=== PATIENT | male | born 1980 | race African-American/Black ===

== ENCOUNTER 2019-09-30 10:20 | Inpatient (IN) | payer OTHER ==
[2019-09-30 10:26] VITALS: TEMP 97.7
[2019-09-30] MEDS ORDERED: SODIUM CHLORIDE 0.9% 1,000 ML IV STA (10:46)
[2019-09-30] MEDS ORDERED: HEPARIN SODIUM,PORCINE 5,000 UNIT/ML 1 ML VIAL IV STA (10:46)
[2019-09-30] MEDS ORDERED: ASPIRIN 81 MG PO STA (10:46)
--- NOTE | 2019-09-30 10:52 | ED ---
General Adult HPI - General Chief complaint: Chest Pain Stated complaint: Chest pain Time Seen by Provider: 09/30/19 10:46 Source: patient Mode of arrival: wheelchair Limitations: no limitations - History of Present Illness Initial comments: Dictation was produced using Edúkame dictation software. please excuse any grammatical, word or spelling errors. Chief Complaint: 38-year-old male presents with chest pain. History of Present Illness: This 38-year-old male who presents today with chief complaint of chest pain. Patient states his pain started yesterday. States that it was a tightness to his anterior chest. He states last several hours. Reports that he was diaphoretic during that time. He does report that there was some feeling that went down his left upper extremity. Patient has been in sharp. There is no radiation to the back. Patient has any history of coronary artery disease. Does report that his mother had cardiac problems but he does not know of any history of heart attacks in the family. Patient states his pain is mild at this time. Denies the pain worsening with lying flat or taking deep breath. The ROS documented in this emergency department record has been reviewed and confirmed by me. Those systems with pertinent positive or negative responses have been documented in the HPI. All other systems are other negative and/or noncontributory. PHYSICAL EXAM: General Impression: Alert and oriented x3, not in acute distress HEENT: Normocephalic atraumatic, extra-ocular movements intact, pupils equal and reactive to light bilaterally, mucous membranes moist. Cardiovascular: Heart regular rate and rhythm, S1&S2 audible, no murmurs, rubs or gallops Chest: Lungs clear to auscultation bilaterally, no rhonchi, no wheeze, no rales Abdomen: Bowel sounds present, abdomen soft, non-tender, non-distended, no organomegaly Musculoskeletal: Pulses present and equal in all extremities, no peripheral edema Motor: no focal deficits noted Neurological: CN II-XII grossly intact, no focal motor or sensory deficits noted Skin: Intact with no visualized rashes Psych: Normal affect and mood ED course: 38-year-old male presents with chief complaint of chest pain. Signs upon arrival are within acceptable limits. EKG concerning for ST segment elevation AL with ST segment elevation in precordial leads. Code STEMI was paged. Patient is given aspirin and heparin bolus. 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 EKG interpretation: Ventricular rate 72, normal sinus rhythm,. Interval 160, QS 102, QTC 394. No old EKG for comparison. Concerning for ST segment elevation AL - Related Data Home Medications Medication Instructions Recorded Confirmed oxyCODONE HCL [oxyCODONE HCL (IR)] 10 mg PO Q6HR PRN 05/05/16 05/05/16 Previous Rx's Medication Instructions Recorded Cetirizine HCl [Zyrtec] 10 mg PO DAILY #10 tab 05/05/16 EPINEPHrine (Auto Inject) [Epipen] 0.3 mg IM ONCE PRN #1 syringe 05/05/16 Famotidine [Pepcid] 20 mg PO BID #10 tablet 05/05/16 predniSONE 50 mg PO DAILY #3 tab 05/05/16 Allergies Allergy/AdvReac Type Severity Reaction Status Date / Time pollen extracts Allergy Rash/Hives Verified 05/05/16 19:45 Review of Systems ROS Statement: Those systems with pertinent positive or pertinent negative responses have been documented in the HPI. ROS Other: All systems not noted in ROS Statement are negative. Past Medical History Additional Past Medical History / Comment(s): lower back pain History of Any Multi-Drug Resistant Organisms: None Reported Past Surgical History: Appendectomy, Back Surgery Past Psychological History: No Psychological Hx Reported Smoking Status: Current every day smoker Past Alcohol Use History: None Reported Past Drug Use History: None Reported General Exam Limitations: no limitations Course Vital Signs 09/30/19 10:21 Temperature 97.7 F Pulse Rate 93 Respiratory 18 Rate O2 Sat by Pulse 99 Oximetry Disposition Clinical Impression: STEMI (ST elevation myocardial infarction) Disposition: ADMITTED IP TO THIS HOSP Condition: Critical Referrals: Denise Rodriguez DO [Primary Care Provider] - 1-2 days Decision Time: 11:01
[2019-09-30] MEDS ORDERED: NALOXONE 0.4 MG/ML 1 ML VIAL IV PRN (10:58)
[2019-09-30] MEDS ORDERED: HEPARIN SOD,PORK IN 0.45% NACL 25,000 UNIT in 0.45% NACL 1 250ML.BAG IV SCH (11:00)
--- NOTE | 2019-09-30 11:05 | XR ---
EXAMINATION TYPE: XR chest 1V portable DATE OF EXAM: 09/30/2019 COMPARISON: None INDICATION: Chest pain left arm numbness TECHNIQUE: Single frontal view of the chest is obtained. FINDINGS: The heart size is normal. The pulmonary vasculature is normal. The lungs are clear. IMPRESSION: 1. No acute pulmonary process.
--- NOTE | 2019-09-30 11:11 | P.HPIM ---
History of Present Illness This is a pleasant 38 years old -[place] African male with no significant past medical history, who presents with chest pain of 2 days' duration, central and radiated into the left arm felt severe about 10/10 in severity with a grabbing sensation on presentation associated with some dyspnea and lightheadedness but no sweating or vomiting. Patient works at [employer], he follows up with Dr. derek kang as his PCP patient every day smoker, he smokes about a third pack per day Presentation vitals stable. Labs are still pending. Chest x-ray: No acute process by Radiologist. EKG showing normal sinus rhythm at [address] elevation in V3 to V6, also at lead 1 and 2. Patient already got one-time dose of aspirin and he was started on heparin drip Review of Systems Review of systems CONSTITUTIONAL: No fever, no malaise, no fatigue. HEENT: No recent visual problems or hearing problems. Denied any sore throat. CARDIOVASCULAR: No orthopnea, PND, no palpitations, no syncope. PULMONARY: no cough, no hemoptysis. GASTROINTESTINAL: No diarrhea, no nausea, no vomiting, no abdominal pain. Normoactive bowel sounds. NEUROLOGICAL: No headaches, no weakness, no numbness. HEMATOLOGICAL: Denies any bleeding or petechiae. GENITOURINARY: Denies any burning micturition, frequency, or urgency. MUSCULOSKELETAL/RHEUMATOLOGICAL: Denies any joint pain, swelling, or any muscle pain. ENDOCRINE: Denies any polyuria or polydipsia. Past Medical History Additional Past Medical History / Comment(s): lower back pain History of Any Multi-Drug Resistant Organisms: None Reported Past Surgical History: Appendectomy, Back Surgery Past Psychological History: No Psychological Hx Reported Smoking Status: Current every day smoker Past Alcohol Use History: None Reported Past Drug Use History: None Reported Medications and Allergies Home Medications Medication Instructions Recorded Confirmed Type Cetirizine HCl [Zyrtec] 10 mg PO DAILY #10 tab 05/05/16 Rx EPINEPHrine (Auto Inject) [Epipen] 0.3 mg IM ONCE PRN #1 syringe 05/05/16 Rx Famotidine [Pepcid] 20 mg PO BID #10 tablet 05/05/16 Rx oxyCODONE HCL [oxyCODONE HCL (IR)] 10 mg PO Q6HR PRN 05/05/16 05/05/16 History predniSONE 50 mg PO DAILY #3 tab 05/05/16 Rx Allergies Allergy/AdvReac Type Severity Reaction Status Date / Time pollen extracts Allergy Rash/Hives Verified 05/05/16 19:45 Physical Exam Vitals: Vital Signs Temp Pulse Resp Pulse Ox 09/30/19 10:21 97.7 F 93 18 99 Intake and Output 09/29/19 09/30/19 09/30/19 22:59 06:59 14:59 Other: Weight 74.752 kg GENERAL: The patient is alert and oriented x3, not in any acute distress. Well developed, well nourished. HEENT: Pupils are round and equally reacting to light. EOMI. No scleral icterus. No conjunctival pallor. Normocephalic, atraumatic. No pharyngeal erythema. No thyromegaly. CARDIOVASCULAR: S1 and S2 present. No murmurs, rubs, or gallops. PULMONARY: Chest is clear to auscultation, no wheezing or crackles. ABDOMEN: Soft, nontender, nondistended, normoactive bowel sounds. No palpable organomegaly. MUSCULOSKELETAL: No joint swelling or deformity. EXTREMITIES: No cyanosis, clubbing, or pedal edema. NEUROLOGICAL: Gross neurological examination did not reveal any focal deficits. SKIN: No rashes. no petechiae. Assessment and Plan Assessment: ST elevation myocardial infarction, going for emergent catheterization of the heart Nicotine dependence Plan: This is a pleasant 78 years old male who presents with a STEMI. Patient is going for emergent cath by cardiology team. Follow-up recommendation by cardiology service team. Continue with antiplatelet therapy like aspirin. Pain management Labs and medication were reviewed.. Continue same treatment. Continue with symptomatic treatment. Resume home medication. Monitor lytes and vitals. DVT and GI prophylaxis. Further recommendations of the clinical course of the patient DVT prophylaxis: Subcutaneous heparin GI Prophylaxis: Pepcid Prognosis is guardedThis is a pleasant 78 years old male who presents with a STEMI. Patient is going for emergent cath by cardiology team. Follow-up recommendation by cardiology service team. Continue with antiplatelet therapy like aspirin. Pain management Labs and medication were reviewed.. Continue same treatment. Continue with symptomatic treatment. Resume home medication. Monitor lytes and vitals. DVT and GI prophylaxis. Further recommendations of the clinical course of the p atient DVT prophylaxis: Subcutaneous heparin GI Prophylaxis: Pepcid Prognosis is guarded
[2019-09-30 11:18] LABS: Basophils # (A) 0.2 k/uL (0-0.2); Basophils % (A) 3 %; Eosinophils # (A) 0.3 k/uL (0-0.7); Eosinophils % (A) 4 %; HCT 43.8 % (39.0-53.0); HGB 15.4 gm/dL (13.0-17.5); Lymphocytes # (A) 1.7 k/uL (1.0-4.8); Lymphocytes % (A) 25 %; MCH 31.2 pg (25.0-35.0); MCHC 35.3 g/dL (31.0-37.0); MCV 88.3 fL (80.0-100.0); Mean Platelet Volume 7.5; Monocytes # (A) 0.3 k/uL (0-1.0); Monocytes % (A) 5 %; Neutrophils # (A) 4.3 k/uL (1.3-7.7); Neutrophils % (A) 62 %; Platelet Count 313 k/uL (150-450); RBC 4.96 m/uL (4.30-5.90); RDW 12.2 % (11.5-15.5); WBC 6.9 k/uL (3.8-10.6)
[2019-09-30] MEDS ORDERED: MIDAZOLAM 2 MG/2 ML VIAL IVP ONE (11:20)
[2019-09-30] MEDS ORDERED: LIDOCAINE 1% INJ 10MG/ML (20 ML MDV) SQ ONE (11:25)
[2019-09-30] MEDS ORDERED: VERAPAMIL SYRINGE (5 MG/10 ML) INTRAARTER ONE (11:26)
[2019-09-30] MEDS ORDERED: IV FLUID CONTINUATION 1,000 ML IV ONE (11:30)
[2019-09-30 11:34] LABS: Partial Thromboplastin Time 23.3 sec (22.0-30.0); Prothrombin Time 10.2 sec (9.0-12.0)
[2019-09-30 11:44] LABS: ALT 49 U/L (4-49); AST 44 U/L (17-59); African American GFR (CKD) >90 (>60 ml/min/1.73 sqM); Albumin 4.6 g/dL (3.5-5.0); Alkaline Phosphatase 72 U/L (38-126); Anion Gap 10 mmol/L; Blood Urea Nitrogen 20 mg/dL (9-20); Calcium 9.9 mg/dL (8.4-10.2); Carbon Dioxide 25 mmol/L (22-30); Chloride 106 mmol/L (98-107); Glucose 98 mg/dL (74-99); Non-African American GFR(CKD) >90 (>60 ml/min/1.73 sqM); Potassium 4.7 mmol/L (3.5-5.1); Sodium 141 mmol/L (137-145); Total Protein 7.7 g/dL (6.3-8.2)
[2019-09-30] MEDS ORDERED: RX INFO: IV CONTRAST WAS GIVEN 1 EACH MISC MISCELLANE PRN (11:52)
[2019-09-30] MEDS ORDERED: IOPAMIDOL-370 100ML BTL INJ ONE (11:54)
[2019-09-30] MEDS ORDERED: SODIUM CHLORIDE 0.9% 1,000 ML IV SCH (12:00)
[2019-09-30 12:17] VITALS: RESP 16
--- NOTE | 2019-09-30 12:28 | CC ---
CARDIAC CATHETERIZATION REPORT DATE OF SERVICE: 09/30/2019 PROCEDURE: Left heart catheterization and coronary angiography. PERFORMED BY: Dr. Nona Zapata. Moderate conscious sedation time was 21 minutes. Patient was administered Versed. Oxygen saturation, hemodynamics and EKG were monitored closely. CLINICAL INFORMATION: Mr. Jojo Allison is a 38-year-old gentleman who is relatively new to the area. He came into the emergency room with chest pain suggestive of angina, had a precordial ST prominence raising the possibility of ST-elevation [place]. The emergency room physician saw the patient and called a STEMI alert. I saw the patient in the laborer electroplating. He was relatively pain free. EKG revealed [address]-depression in lead V2 and clinical picture was not strongly suggestive of myocardial ischemia, but given his presentation and unclear situation, I recommended coronary angiography that was performed expeditiously. PROCEDURE NOTE: Under local anesthesia and strict aseptic precautions, a 6-Welsh introducer was placed in the right radial artery. There was some spasm. I used a Glidewire. Using a JL3.5 and JR4.0 catheters I performed coronary angiography and checked LV pressures with the right Santino catheter. Following that, I took the sheath out and applied a TR band with good hemostasis. Saturation of the fingers of the right hand was 100%. Patient tolerated procedure well without complications. CARDIAC CATHETERIZATION FINDINGS: The left ventricular end-diastolic pressure was 10 mmHg without any gradient across the aortic valve. CORONARY ANGIOGRAPHY FINDINGS: RIGHT CORONARY ARTERY: Technically a codominant vessel has no significant disease, tortuous, distally gives off a single branch. No significant disease, has minor irregularities. LEFT MAIN CORONARY ARTERY: Short patent disease-free vessel that bifurcates into LAD and circumflex. No significant disease in the left main. LEFT ANTERIOR DESCENDING CORONARY ARTERY: This is a good caliber vessel extends along the anterior wall. The LAD is somewhat tortuous, but no significant disease. It gives off a large diagonal branch and runs all the way to the apex, curves over the apex to supply the inferoapical portion. It gives off several septal branches. No significant disease in the LAD. Diagonal is also free of significant disease. LEFT POSTERIOR CIRCUMFLEX CORONARY ARTERY: A codominant vessel gives off a good-sized obtuse marginal branch that runs in the PLV distribution and also has an AV groove branch that runs all the way distally and gives off a posterolateral branch. The first obtuse marginal that comes off seems to run in the PDA distribution and the continuation of the circumflex then continues as a posterolateral branch. No significant disease in the codominant circumflex system. LEFT VENTRICULOGRAM: Left ventriculogram was not performed. Moderate conscious sedation time was 21 minutes. FINAL IMPRESSION: This patient has a codominant system. Normal filling pressures. No gradient across aortic valve. No significant obstructive coronary artery disease. RECOMMENDATIONS: Findings were discussed with the patient and his boyfriend partner. I explained that there is no CAD. I will obtain a D-dimer level, echocardiogram and watch him closely for 24 hours. The patient does not have obstructive CAD and his labs and initial troponin is unremarkable. MMODL / IJN: [id number] /
--- NOTE | 2019-09-30 12:40 | CONS ---
CONSULTATION Mr. Jojo Allison is a 38-year-old gentleman who presented to the emergency room with chest pain, was seen by the ER doctor and a STEMI alert was called. He had ST elevation in lead V2. His main complaint was chest pressure that is going on for several hours. It actually started yesterday. The pain is persistent and he also had an episode of diaphoresis. Quality of the pain does raise the possibility of angina. However, this pain seems to be sharp in nature. Sometimes worse sometimes with deep breathing. He was asymptomatic when I saw him in the emergency room. PAST MEDICAL HISTORY: Remarkable for a low back pain with disc issues. He takes pain medications and also has some depression and takes BuSpar. ALLERGIES: None. REVIEW OF SYSTEMS: Unremarkable other than above-mentioned facts. PHYSICAL EXAMINATION: Blood pressure is 130/70, pulse rate is about 80 per minute. HEENT: Unremarkable. Fundus was not examined by me. NECK: Supple. No JVD. I do not hear a carotid bruit. There is no thyromegaly. HEART: Exam reveals S1, S2 heard normally. No rub, murmur or gallop. LUNGS: Are clear. ABDOMEN: Is soft, nontender. LOWER EXTREMITIES: Reveal normal pulses. No edema. CENTRAL NERVOUS SYSTEM: Normal. EKG reveals sinus mechanism, is slightly prominent ST J-point in lead V1 and V2. EKG is equivocal for ST elevation [place], but a STEMI alert was called. IMPRESSION: 1. Chest pain with equivocal ST elevation, no clear-cut evidence of ST-elevation myocardial infarction. 2. History of low back pain. 3. Status post appendectomy. RECOMMENDATION: I recommended coronary angiography and based on findings intervention. The rationale, risks, benefits, options were explained to the patient. He understood all details and wished to proceed with the procedure. MMODL / IJN: [id number] /
[2019-09-30] MEDS ORDERED: ACETAMINOPHEN TAB 325 MG TAB PO PRN (15:49)
[2019-09-30 20:12] VITALS: BP 131/73; PULSE 83
[2019-09-30] MEDS ORDERED: METOPROLOL TARTRATE 12.5 MG TAB PO SCH (21:00)
[2019-09-30] MEDS ORDERED: HEPARIN SODIUM,PORCINE 5,000 UNIT/ML 1 ML VIAL SQ SCH (21:00)
--- NOTE | 2019-10-01 13:00 | ECHOF ---
Referral Reason:chest pain. MEASUREMENTS -------- HEIGHT: 175.3 cm WEIGHT: 74.4 kg BP: IVSd: 1.6 cm (0.6 - 1.1) LVIDd: 4.0 cm (3.9 - 5.3) LVPWd: 1.7 cm (0.6 - 1.1) IVSs: 2.2 cm LVIDs: 2.3 cm LVPWs: 2.0 cm LAESV Index (A-L): 19.20 ml/m Ao Diam: 3.2 cm (2.0 - 3.7) AV Cusp: 2.3 cm (1.5 - 2.6) LA Diam: 2.0 cm (2.7 - 3.8) MV EXCURSION: 26.725 mm (> 18.000) MV EF SLOPE: 150 mm/s (70 - 150) EPSS: 0.8 cm MV E Domingo: 0.50 m/s MV DecT: 223 ms MV A Domingo: 0.41 m/s MV E/A Ratio: 1.21 RAP: 5.00 mmHg RVSP: 10.25 mmHg FINDINGS -------- Sinus rhythm. This was a technically good study. The left ventricular size is normal. There is severe concentric left ventricular hypertrophy. Ove rall left ventricular systolic function is low-normal with, an EF between 50 - 55 %. The diastolic filling pattern is normal for the age of the patient 6.09. The right ventricle is normal in size. The left atrial size is normal. Normal LA size by volume 22+/-6 ml/m2. The right atrial size is normal. The aortic valve is trileaflet and appears structurally normal. The mitral valve is normal. The mitral valve leaflets are mildly thickened. There is trace mitral regurgitation. The tricuspid valve appears structurally normal. Trace tricuspid regurgitation present. Right placido tricular systolic pressure is normal at < 35 mmHg. There is no pulmonic regurgitation present. The aortic root size is normal. Normal inferior vena cava with normal inspiratory collapse consistent with estimated right atrial pre ssure of 5 mmHg. There is no pericardial effusion. CONCLUSIONS -------- 1. Sinus rhythm. 2. This was a technically good study. 3. The left ventricular size is normal. 4. There is severe concentric left ventricular hypertrophy. 5. Overall left ventricular systolic function is low-normal with, an EF between 50 - 55 %. 6. The diastolic filling pattern is normal for the age of the patient 6.09 7. The right ventricle is normal in size. 8. The left atrial size is normal. 9. Normal LA size by volume 22+/-6 ml/m2. 10. The right atrial size is normal. 11. The aortic valve is trileaflet and appears structurally normal. 12. The mitral valve is normal. 13. The mitral valve leaflets are mildly thickened. 14. There is trace mitral regurgitation. 15. The tricuspid valve appears structurally normal. 16. Trace tricuspid regurgitation present. 17. Right ventricular systolic pressure is normal at < 35 mmHg. 18. There is no pulmonic regurgitation present. 19. The aortic root size is normal. 20. Normal inferior vena cava with normal inspiratory collapse consistent with estimated right atrial pressure of 5 mmHg. 21. There is no pericardial effusion. HAND INSPECTOR: Lesley Mcmahan RDCS
--- NOTE | 2019-10-08 12:30 | CDI ---
Documentation Clarification Form Date: 10/08/19 From: Fabiana Pelaez Phone: If you have a question about this query, please contact Sharla Almazan, Diesel Stationary Engineer at [phone] between 8am and 5pm. Admit Date: 09/30/19 Discharge Date:09/30/19 Patient Name: Jojo Allison Visit Number: [id number] ATTENTION: The Clinical Documentation Specialists (CDI) and [facility] Coding Staff appreciate your assistance in clarifying documentation. Please respond to the clarification below the line at the bottom and electronically sign. The CDI & [facility] Coding staff will review the response and follow-up if needed. Please note: Queries are made part of the Legal Health Record. If you have any questions, please contact the author of this message via ITS. Dear Dr. Celis ST elevation myocardial infarction is documented in the H&P and ED note. Patient History/Risk Factors: Smokes cigarettes Clinical Indicators: Chest pain Troponin: < 0.012 EKG Results: Significant ST elevation in V3 to V6 also at lead 1 and 2 Treatment: Coronary angiography which revealed no CAD Consult: Dr. Zapata documented chest pain with equivocal ST elevation, no clear- cut evidence of ST elevation myocardial infarction. In order to capture the severity of condition and necessary documentation specificity, please clarify: STEMI Ruled Out STEMI NSTEMI Unable to determine Other Condition, please specify STEMI Ruled Out MTDD
== END 2019-09-30 18:17 | disposition home or self-care (01) | DRG 287 ==
LOC: EC 10:20 → 2SICU 10:58 → 3SCARD 11:47
PROVIDERS: ADMIT Internal Medicine; ATTEND Internal Medicine
PROC: B2111ZZ Fluoroscopy of Multiple Coronary Arteries using Low Osmolar Contrast (ICD-10-PCS; principal; 2019-09-30 09:00)
PROC: 4A023N7 Measurement of Cardiac Sampling and Pressure, Left Heart, Percutaneous Approach (ICD-10-PCS; principal; 2019-09-30 09:00)
DX: R07.9 Chest pain, unspecified (principal); F17.210 Nicotine dependence, cigarettes, uncomplicated; M54.5 Low back pain; F32.9 Major depressive disorder, single episode, unspecified; Z90.49 Acquired absence of other specified parts of digestive tract; Z79.52 Long term (current) use of systemic steroids; Z79.899 Other long term (current) drug therapy; Z91.048 Other nonmedicinal substance allergy status
CPT/HCPCS: 71045; 80053; 84484; 85025; 85379; 85610; 85730; 93306; 93458; 96374; 99285

== ENCOUNTER 2020-09-02 04:28 | Emergency (ER) | payer OTHER ==
[2020-09-02 04:35] VITALS: BP 130/78; PULSE 93; RESP 20; TEMP 98.6
[2020-09-02] MEDS ORDERED: cefTRIAXone 250 MG VIAL IM STA (04:41)
[2020-09-02] MEDS ORDERED: AZITHROMYCIN 500 MG TAB PO STA (04:41)
--- NOTE | 2020-09-02 04:41 | ED ---
Male Urogenital HPI - General Chief complaint: Urogenital Stated complaint: not feeling well Time Seen by Provider: 09/02/20 04:40 Source: patient, RN notes reviewed, old records reviewed Mode of arrival: ambulatory Limitations: no limitations - History of Present Illness Initial comments: This is a 39-year-old male to the ER for evaluation. Patient has burning discharge drainage from his urethra, penis. No rash noted does admit to new sexual contacts. No fevers no swelling he has have prior history of STD MD Complaint: dysuria -: days(s) Location: penis Radiation: none Severity: moderate Quality: burning, sharp Consistency: constant Improves with: none Worsens with: urination new sexual partner Reports: discharge, blood in urine - Related Data Home Medications Medication Instructions Recorded Confirmed oxyCODONE HCL [oxyCODONE HCL (IR)] 10 mg PO TID 05/05/16 09/30/19 busPIRone HCL 15 mg PO DAILY 09/30/19 09/30/19 busPIRone HCL 30 mg PO HS 09/30/19 09/30/19 Previous Rx's Medication Instructions Recorded EPINEPHrine (Auto Inject) [Epipen] 0.3 mg IM ONCE PRN #1 syringe 05/05/16 Allergies Allergy/AdvReac Type Severity Reaction Status Date / Time pollen extracts Allergy Rash/Hives Verified 09/02/20 04:35 Review of Systems ROS Statement: Those systems with pertinent positive or pertinent negative responses have been documented in the HPI. ROS Other: All systems not noted in ROS Statement are negative. Past Medical History Additional Past Medical History / Comment(s): lower back pain, RA History of Any Multi-Drug Resistant Organisms: None Reported Past Surgical History: Appendectomy, Back Surgery Past Psychological History: No Psychological Hx Reported Smoking Status: Current some day smoker Past Alcohol Use History: None Reported Past Drug Use History: None Reported General Exam - General Exam Comments Initial Comments: No rash noted no swelling no lymphadenopathy Limitations: no limitations General appearance: alert, in no apparent distress Head exam: Present: atraumatic, normocephalic, normal inspection Eye exam: Present: normal appearance, PERRL, EOMI. Absent: scleral icterus, conjunctival injection, periorbital swelling ENT exam: Present: normal exam, mucous membranes moist Neck exam: Present: normal inspection. Absent: tenderness, meningismus, lymphadenopathy Respiratory exam: Present: normal lung sounds bilaterally. Absent: respiratory distress, wheezes, rales, rhonchi, stridor Cardiovascular Exam: Present: regular rate, normal rhythm, normal heart sounds. Absent: systolic murmur, diastolic murmur, rubs, gallop, clicks GI/Abdominal exam: Present: soft, normal bowel sounds. Absent: distended, tenderness, guarding, rebound, rigid Extremities exam: Present: normal inspection, full ROM, normal capillary refill. Absent: tenderness, pedal edema, joint swelling, calf tenderness Back exam: Present: normal inspection Neurological exam: Present: alert, oriented X3, CN II-XII intact Psychiatric exam: Present: normal affect, normal mood Skin exam: Present: warm, dry, intact, normal color. Absent: rash Course Vital Signs 09/02/20 04:30 Temperature 98.6 F Pulse Rate 93 Respiratory 20 Rate Blood Pressure 130/78 O2 Sat by Pulse 100 Oximetry - Reevaluation(s) Reevaluation #1: 09/02/20 05:19 Medical record is reviewed Reevaluation #2: 09/02/20 05:20 Patient is informed of results Medical Decision Making - Medical Decision Making 39 male DF for evaluation. Patient will be discharged home and treated for STD - Lab Data Lab Results 09/02/20 Range/Units 04:45 Urine Color Yellow Urine Appearance Cloudy (Clear) Urine pH 6.5 (5.0-8.0) Ur Specific [place] 1.015 (1.001-1.035) Urine Protein Trace H (Negative) Urine Glucose (UA) Negative (Negative) Urine Ketones Negative (Negative) Urine Blood Moderate H (Negative) Urine Nitrite Negative (Negative) Urine Bilirubin Negative (Negative) Urine Urobilinogen <2.0 (<2.0) mg/dL Ur Leukocyte Esterase Large H (Negative) Urine RBC 13 H (0-5) /hpf Urine WBC 39 H (0-5) /hpf Urine Bacteria Occasional H (None) /hpf Urine Mucus Occasional H (None) /hpf Urine Yeast (Budding) Moderate H (None) /hpf Urine Sperm Few H (None) /hpf Disposition Clinical Impression: Urethritis, STD (male) Disposition: HOME SELF-CARE Condition: Good Instructions (If sedation given, give patient instructions): Urinary Tract Infection in Men (ED) Is patient prescribed a controlled substance at d/c from ED?: No Referrals: Ajith Preston MD [Primary Care Provider] - 1-2 days
[2020-09-02 04:56] LABS: Appearance,Urine Cloudy (Clear); Bacteria,Urine Occasional /hpf; Bilirubin,Urine Negative (Negative); Blood,Urine Moderate (Negative); Budding Yeast,Urine Moderate /hpf; Color,Urine Yellow; Glucose,Urine (UA) Negative (Negative); Ketones,Urine Negative (Negative); Leukocyte Esterase,Urine Large (Negative); Mucus,Urine Occasional /hpf; Nitrite,Urine Negative (Negative); PH, Urine 6.5 (5.0-8.0); Protein,Urine Trace (Negative); RBC,Urine 13 /hpf (0-5); Specific Gravity,Urine 1.015 (1.001-1.035); Sperm,Urine Few /hpf; Urobilinogen,Urine <2.0 mg/dL (<2.0); WBC,Urine 39 /hpf (0-5)
== END 2020-09-02 05:29 | disposition home or self-care (01) ==
LOC: EC 04:28
DX: A64 Unspecified sexually transmitted disease (principal); N34.2 Other urethritis; M54.5 Low back pain; F17.200 Nicotine dependence, unspecified, uncomplicated; Z79.891 Long term (current) use of opiate analgesic; Z79.899 Other long term (current) drug therapy; Z91.048 Other nonmedicinal substance allergy status
CPT/HCPCS: 81001; 87491; 87591; 87086; 99284; 96372; J0696

== ENCOUNTER 2021-05-02 23:40 | Emergency (ER) | payer OTHER ==
--- NOTE | 2021-05-03 02:40 | ED ---
General Adult HPI - General Chief complaint: Abdominal Pain Stated complaint: poss hernia Time Seen by Provider: 05/03/21 02:38 Source: patient Mode of arrival: ambulatory Limitations: no limitations - History of Present Illness Initial comments: 40 year-old male patient presents to the emergency department for evaluation of left groin swelling and discomfort. States it has been bothering him for about a week. He was concerned because he lifts weights and was not sure if it was a hernia. Patient denies any nausea, vomiting, fever, or chills. Denies any constipation or diarrhea. Denies history of hernia. Denies any back pain. Denies any hematuria, dysuria, urinary urgency, urinary frequency. Denies any scrotal swelling or pain. - Related Data Home Medications Medication Instructions Recorded Confirmed oxyCODONE HCL [oxyCODONE HCL (IR)] 10 mg PO TID 05/05/16 09/30/19 busPIRone HCL 15 mg PO DAILY 09/30/19 09/30/19 busPIRone HCL 30 mg PO HS 09/30/19 09/30/19 Previous Rx's Medication Instructions Recorded EPINEPHrine (Auto Inject) [Epipen] 0.3 mg IM ONCE PRN #1 syringe 05/05/16 Doxycycline Monohydrate [Monodox] 100 mg PO Q12HR #20 cap 09/02/20 Allergies Allergy/AdvReac Type Severity Reaction Status Date / Time pollen extracts Allergy Rash/Hives Verified 05/03/21 00:26 Review of Systems ROS Statement: Those systems with pertinent positive or pertinent negative responses have been documented in the HPI. ROS Other: All systems not noted in ROS Statement are negative. Past Medical History Past Medical History: Rheumatoid Arthritis (RA) Additional Past Medical History / Comment(s): lower back pain, RA, lupus History of Any Multi-Drug Resistant Organisms: None Reported Past Surgical History: Appendectomy, Back Surgery Past Psychological History: No Psychological Hx Reported Smoking Status: Current some day smoker Past Alcohol Use History: None Reported Past Drug Use History: None Reported General Exam Limitations: no limitations General appearance: alert, in no apparent distress, other Respiratory exam: Present: normal lung sounds bilaterally. Absent: respiratory distress, wheezes, rales, rhonchi, stridor Cardiovascular Exam: Present: regular rate, normal rhythm, normal heart sounds. Absent: systolic murmur, diastolic murmur, rubs, gallop, clicks GI/Abdominal exam: Present: soft, normal bowel sounds. Absent: distended, tenderness, guarding, rebound, rigid exam: Present: normal inspection, other (left inguinal lymph node swelling, tenderness) Neurological exam: Present: alert, oriented X3, CN II-XII intact Psychiatric exam: Present: normal affect, normal mood Skin exam: Present: warm, dry, intact, normal color. Absent: rash Course Vital Signs 05/03/21 00:23 Temperature 98.2 F Pulse Rate 69 Respiratory 20 Rate Blood Pressure 122/80 O2 Sat by Pulse 99 Oximetry Medical Decision Making - Medical Decision Making 40 year-old male patient presents to the emergency department for evaluation of left groin swelling and tenderness. Physical examination reveals left inguinal lymphadenopathy and tenderness. No swelling. No evidence for abscess or infectious process. He is afebrile. Normal vital signs. He will be discharged with instructions to apply warm compresses. Instructed to follow up with his primary care physician for recheck in 1 week if symptoms do not improve. Return parameters discussed in detail. He verbalizes understanding and agrees with this plan. My attending is Dr. Platt. Disposition Clinical Impression: Inguinal lymphadenopathy Disposition: HOME SELF-CARE Condition: Good Instructions (If sedation given, give patient instructions): Lymphadenopathy (ED) Additional Instructions: Apply warm compresses over the area twice daily. Follow up with primary care physician for recheck if symptoms do not improve over the next week. Return to the emergency department for any new, worsening, or concerning symptoms. Is patient prescribed a controlled substance at d/c from ED?: No Referrals: Nonstaff,Physician [Primary Care Provider] - 1-2 days Time of Disposition: 02:40
[2021-05-03 02:46] VITALS: BP 144/86; PULSE 94; RESP 18; TEMP 98.1
== END 2021-05-03 02:45 | disposition home or self-care (01) ==
LOC: EC 23:40
DX: R59.0 Localized enlarged lymph nodes (principal); F17.200 Nicotine dependence, unspecified, uncomplicated; Z90.49 Acquired absence of other specified parts of digestive tract
CPT/HCPCS: 99283

== ENCOUNTER 2021-05-24 05:49 | Emergency (ER) | payer OTHER ==
[2021-05-24 05:58] VITALS: BP 121/78; PULSE 78; RESP 18; TEMP 98.4
[2021-05-24] MEDS ORDERED: MORPHINE SULFATE 4 MG/ML SYRINGE IM STA (06:06)
--- NOTE | 2021-05-24 06:28 | ED ---
General Adult HPI - General Chief complaint: Urogenital Stated complaint: Male Time Seen by Provider: 05/24/21 06:22 Source: patient, RN notes reviewed Mode of arrival: ambulatory Limitations: no limitations - History of Present Illness Initial comments: 40-year-old male with a past medical history of RA, lupus presents to the emergency room for a chief complaint of retained foreign body around penis. Patient states about 6 hours ago he placed a ring around the penis and testicles. States that he cannot get it off. She states that it is now be coming painful and swollen.Patient has no other complaints at this time including shortness of breath, chest pain, abdominal pain, nausea or vomiting, headache, or visual changes. - Related Data Home Medications Medication Instructions Recorded Confirmed oxyCODONE HCL [oxyCODONE HCL (IR)] 10 mg PO TID 05/05/16 09/30/19 busPIRone HCL 15 mg PO DAILY 09/30/19 09/30/19 busPIRone HCL 30 mg PO HS 09/30/19 09/30/19 Previous Rx's Medication Instructions Recorded EPINEPHrine (Auto Inject) [Epipen] 0.3 mg IM ONCE PRN #1 syringe 05/05/16 Doxycycline Monohydrate [Monodox] 100 mg PO Q12HR #20 cap 09/02/20 Amoxic-Pot Clav 875-125Mg 1 tab PO Q12HR #20 tablet 05/03/21 [Augmentin 875-125] Allergies Allergy/AdvReac Type Severity Reaction Status Date / Time pollen extracts Allergy Rash/Hives Verified 05/24/21 05:58 Review of Systems ROS Statement: Those systems with pertinent positive or pertinent negative responses have been documented in the HPI. ROS Other: All systems not noted in ROS Statement are negative. Past Medical History Past Medical History: Rheumatoid Arthritis (RA) Additional Past Medical History / Comment(s): lower back pain, RA, lupus History of Any Multi-Drug Resistant Organisms: None Reported Past Surgical History: Appendectomy, Back Surgery Past Psychological History: No Psychological Hx Reported Smoking Status: Current some day smoker Past Alcohol Use History: None Reported Past Drug Use History: None Reported General Exam Limitations: no limitations General appearance: alert, in no apparent distress Head exam: Present: atraumatic Eye exam: Present: normal appearance, PERRL, EOMI. Absent: scleral icterus ENT exam: Present: normal exam, mucous membranes moist Neck exam: Present: normal inspection, full ROM. Absent: tenderness Respiratory exam: Present: normal lung sounds bilaterally. Absent: respiratory distress, wheezes Cardiovascular Exam: Present: regular rate, normal rhythm, normal heart sounds exam: Present: other (Patient has a 3 ringed metal structure around the base of the penile shaft as well as the scrotum. Mild penile edema noted. Skin is intact.) Course Vital Signs 05/24/21 05:52 Temperature 98.4 F Pulse Rate 78 Respiratory 18 Rate Blood Pressure 121/78 O2 Sat by Pulse 100 Oximetry Medical Decision Making - Medical Decision Making [place]ain cutters were used by Dr Platt and myself to cut the rings and it was easily removed. Patient's pain had resolved after removal. At this time patient can be discharged home to follow up with primary care. He'll return here for any worsening symptoms. Disposition Clinical Impression: Foreign body of penis Disposition: HOME SELF-CARE Condition: Good Instructions (If sedation given, give patient instructions): Priapism (ED) Additional Instructions: Please follow-up with your doctor in one to 2 days. Return to the emergency room for any worsening symptoms. Is patient prescribed a controlled substance at d/c from ED?: No Referrals: Nonstaff,Physician [Primary Care Provider] - 1-2 days Time of Disposition: 06:24
== END 2021-05-24 06:34 | disposition home or self-care (01) ==
LOC: EC 05:49
DX: T19.4XXA Foreign body in penis, initial encounter (principal); M06.9 Rheumatoid arthritis, unspecified; F17.200 Nicotine dependence, unspecified, uncomplicated
CPT/HCPCS: 99283; 96374; J2270

== ENCOUNTER → 2022-12-08 | Outpatient (CLI) | payer OTHER ==
--- NOTE | 2022-12-09 12:06 | XR ---
EXAMINATION TYPE: XR Hip Bilateral and AP pelvis DATE OF EXAM: 12/08/2022 COMPARISON: None HISTORY: Pain bilateral hips TECHNIQUE: Two-view bilateral hips supplemented with an AP pelvis. FINDINGS: Femoral heads articulate with the acetabulum. Mild joint space narrowing is present. Sacroi liac joints and symphysis pubis appear intact. There is a osseous spur from the lateral portion right pubic ramus. There is dystrophic calcification adjacent to the femoral neck of the left hip. No acute fractures are evident. IMPRESSION: 1. Chronic changes bilateral hips. No acute fractures evident. Follow up studies can be performed as clinically indicated.
== END | disposition home or self-care (01) ==
LOC: RADXRMAIN 14:45
PROVIDERS: ATTEND Family Medicine
DX: M06.4 Inflammatory polyarthropathy (principal); M25.551 Pain in right hip; M54.50 Low back pain, unspecified
CPT/HCPCS: 73521

== ENCOUNTER → 2023-01-12 | Outpatient (CLI) | payer OTHER ==
--- NOTE | 2023-01-13 23:32 | XR ---
EXAMINATION TYPE: XR lumbosacral spine min 4V DATE OF EXAM: 01/12/2023 Comparison: None Clinical History: 42-year-old male low back pain, M54.50 Findings: 5 lumbar type vertebral bodies. Facet arthropathy lower lumbar spine. No pars interarticularis defect seen. Vertebral body heights are preserved and alignment is maintained. Impression: Facet arthropathy lower lumbar spine. No vertebral compression collapse or malalignment.
== END | disposition home or self-care (01) ==
LOC: RADXRMAIN 11:23
PROVIDERS: ATTEND Family Medicine
DX: M47.816 Spondylosis without myelopathy or radiculopathy, lumbar region (principal); M06.4 Inflammatory polyarthropathy; M25.551 Pain in right hip
CPT/HCPCS: 72110

== ENCOUNTER 2023-03-28 15:55 | Emergency (ER) | payer OTHER ==
[2023-03-28 17:21] LABS: Appearance,Urine Clear (Clear); Bilirubin,Urine Negative (Negative); Blood,Urine Small (Negative); Color,Urine Light Yellow; Glucose,Urine (UA) Negative (Negative); Ketones,Urine Negative (Negative); Leukocyte Esterase,Urine Trace (Negative); Mucus,Urine Rare /hpf; Nitrite,Urine Negative (Negative); Protein,Urine Negative (Negative); RBC,Urine 6 /hpf (0-5); Specific Gravity,Urine 1.013 (1.001-1.035); Urobilinogen,Urine <2.0 mg/dL (<2.0); WBC,Urine 2 /hpf (0-5)
[2023-03-28] MEDS ORDERED: DOXYCYCLINE 100 MG CAP PO STA (17:49)
[2023-03-28] MEDS ORDERED: cefTRIAXone 1,000 MG VIAL (IM USE) IM STA (17:51)
--- NOTE | 2023-03-28 17:52 | ED ---
Male Urogenital HPI - General Chief complaint: Urogenital Stated complaint: poss STD Time Seen by Provider: 03/28/23 16:41 Source: patient Mode of arrival: ambulatory Limitations: no limitations - History of Present Illness Initial comments: Patient is a 42-year-old male who presents to the emergency department for STI testing. Patient states for the past 2 days he has had burning with urination and pain with ejaculation. He denies testicular pain, penile discharge, penile lesions. Denies fever, chills, nausea, vomiting. Patient has one male partner they do have unprotected anal intercourse. He is the insertive partner. Denies any receptive anal intercourse. He had a recent HIV testing which was negative. - Related Data Home Medications Medication Instructions Recorded Confirmed oxyCODONE HCL [oxyCODONE HCL (IR)] 10 mg PO TID 05/05/16 09/30/19 busPIRone HCL 15 mg PO DAILY 09/30/19 09/30/19 busPIRone HCL 30 mg PO HS 09/30/19 09/30/19 Previous Rx's Medication Instructions Recorded EPINEPHrine (Auto Inject) [Epipen] 0.3 mg IM ONCE PRN #1 syringe 05/05/16 Doxycycline Monohydrate [Monodox] 100 mg PO Q12HR #20 cap 09/02/20 Amoxic-Pot Clav 875-125Mg 1 tab PO Q12HR #20 tablet 05/03/21 [Augmentin 875-125] Doxycycline [Vibramycin] 100 mg PO BID #28 cap 03/28/23 Ibuprofen [Motrin] 600 mg PO Q8HR PRN #30 tab 03/28/23 Allergies Allergy/AdvReac Type Severity Reaction Status Date / Time pollen extracts Allergy Rash/Hives Verified 03/28/23 16:21 Review of Systems ROS Statement: Those systems with pertinent positive or pertinent negative responses have been documented in the HPI. ROS Other: All systems not noted in ROS Statement are negative. Past Medical History Past Medical History: Rheumatoid Arthritis (RA) Additional Past Medical History / Comment(s): lower back pain, RA, lupus History of Any Multi-Drug Resistant Organisms: None Reported Past Surgical History: Appendectomy, Back Surgery Past Psychological History: No Psychological Hx Reported Smoking Status: Current some day smoker Past Alcohol Use History: None Reported Past Drug Use History: None Reported General Exam Limitations: no limitations General appearance: alert, in no apparent distress Head exam: Present: atraumatic, normocephalic, normal inspection ENT exam: Present: normal exam, mucous membranes moist Respiratory exam: Present: normal lung sounds bilaterally. Absent: respiratory distress, wheezes, rales, rhonchi, stridor Cardiovascular Exam: Present: regular rate, normal rhythm, normal heart sounds. Absent: systolic murmur, diastolic murmur, rubs, gallop, clicks GI/Abdominal exam: Present: soft, normal bowel sounds. Absent: distended, tenderness, guarding, rebound, rigid exam: Present: normal inspection, circumcision. Absent: testicular tenderness, urethral discharge, scrotal swelling, vertical testicular lie External exam: Present: normal external exam. Absent: erythema, swelling, lesions, lacerations, ecchymosis Neurological exam: Present: alert Psychiatric exam: Present: normal affect, anxious Skin exam: Present: warm, dry, intact, normal color. Absent: rash Course Vital Signs 03/28/23 03/28/23 16:18 18:31 Temperature 98.8 F 98.4 F Pulse Rate 82 86 Respiratory 18 16 Rate Blood Pressure 141/87 136/82 O2 Sat by Pulse 98 98 Oximetry Medical Decision Making - Medical Decision Making Was pt. sent in by a medical professional or institution (, PA, FACEPIECE LINE SUPERVISOR, urgent care, hospital, or assisted...) When possible be specific @ -No Did you speak to anyone other than the patient for history (EMS, parent, family, police, friend...)? What history was obtained from this source @ -No Did you review nursing and triage notes (agree or disagree)? Why? @ -I reviewed and agree with nursing and triage notes Were old charts reviewed (outside hosp., previous admission, EMS record, old EKG, old radiological studies, urgent care reports/EKG's, assisted records)? Report findings @ -No old charts were reviewed Differential Diagnosis (chest pain, altered mental status, abdominal pain women, abdominal pain men, vaginal bleeding, weakness, fever, dyspnea, syncope, headache, dizziness, GI bleed, back pain, seizure, CVA, palpatations, mental health)? @ -STI, UTI, prostatitis, urethritis. This list is not meant to be all- inclusive EKG interpreted by me (3pts min.). @ -As above X-rays interpreted by me (1pt min.). @ -None done CT interpreted by me (1pt min.). @ -None done U/S interpreted by me (1pt. min.). @ -None done What testing was considered but not performed or refused? (CT, X-rays, U/S, labs)? Why? @ -None What meds were considered but not given or refused? Why? @ -None Did you discuss the management of the patient with other professionals (shana matson i.eDeni Tsang, PA, FACEPIECE LINE SUPERVISOR, lab, RT, psych nurse, social contact worker, burn center nurse, teacher, trust officer, transplant case manager)? Give summary @ -No Was smoking cessation discussed for >3mins.? @ -No Was critical care preformed (if so, how long)? @ -No Were there social determinants of health that impacted care today? How? (Homelessness, low income, unemployed, alcoholism, drug addiction, transportation, low edu. Level, literacy, decrease access to med. care, nursing home, rehab)? @ -No Was there de-escalation of care discussed even if they declined (Discuss DNR or withdrawal of care, Hospice)? DNR status @ -No What co-morbidities impacted this encounter? (DM, HTN, Smoking, COPD, CAD, Cancer, CVA, ARF, Chemo, Hep., AIDS, mental health diagnosis, sleep apnea, morbid obesity)? @ -None Was patient admitted / discharged? Hospital course, mention meds given and route, prescriptions, significant lab abnormalities, going to OR and other pertinent info. @ -Discharged. Patient tested for gonorrhea, chlamydia, Trichomonas. Urinalysis reveals 6 to RBCs no evidence of infection. Patient denies receptive anal intercourse however with complaint of pain with ejaculation I will cover for prostatitis. Patient given I am Rocephin and will be discharged with doxycycline. He is to follow-up with primary care provider for further testing if desired. We discussed safe sexual intercourse practices. Undiagnosed new problem with uncertain prognosis? @ -No Drug Therapy requiring intensive monitoring for toxicity (Heparin, Nitro, Insulin, Cardizem)? @ -No] Were any procedures done? @ -[No] Diagnosis/symptom? @ Dysuria, pain with ejaculation Acute, or Chronic, or Acute on Chronic? @ -Acute Uncomplicated (without systemic symptoms) or Complicated (systemic symptoms)? @ -uncomplicated Side effects of treatment? @ -[No] Exacerbation, Progression, or Severe Exacerbation? @ -[No] Poses a threat to life or bodily function? How? (Chest pain, [place], [place], pneumonia, PE, COPD, DKA, ARF, appy, cholecystitis, CVA, Diverticulitis, Homicidal, Suicidal, threat to staff... and all critical care pts) @ -[No] Dr. Horn is my attending - Lab Data Lab Results 03/28/23 Range/Units 16:48 Urine Color Light Yellow Urine Appearance Clear (Clear) Urine pH 7.0 (5.0-8.0) Ur Specific [place] 1.013 (1.001-1.035) Urine Protein Negative (Negative) Urine Glucose (UA) Negative (Negative) Urine Ketones Negative (Negative) Urine Blood Small H (Negative) Urine Nitrite Negative (Negative) Urine Bilirubin Negative (Negative) Urine Urobilinogen <2.0 (<2.0) mg/dL Ur Leukocyte Esterase Trace H (Negative) Urine RBC 6 H (0-5) /hpf Urine WBC 2 (0-5) /hpf Urine Mucus Rare H (None) /hpf Disposition Clinical Impression: Pain with ejaculation, Dysuria Disposition: HOME SELF-CARE Condition: Good Instructions (If sedation given, give patient instructions): Prostatitis (ED) Additional Instructions: Take medication as directed. It is important to finish full course of antibiotics. You should not have sexual intercourse with her partner until they are tested and have results. Follow-up with her primary care provider for HIV testing if desired. Return to the emergency department if you experience new, concerning, or worsening symptoms. Prescriptions: Ibuprofen [Motrin] 600 mg PO Q8HR PRN #30 tab PRN Reason: Pain Doxycycline [Vibramycin] 100 mg PO BID #28 cap Is patient prescribed a controlled substance at d/c from ED?: No Referrals: None,Stated [Primary Care Provider] - 1-2 days
[2023-03-28 18:33] VITALS: BP 136/82; PULSE 86; RESP 16; TEMP 98.4
[2023-04-01 10:15] LABS: Chlamydia trachomatis rRNA Not detected (Not detected); Neisseria gonorrhoeae rRNA Not detected (Not detected)
== END 2023-03-28 18:14 | disposition home or self-care (01) ==
LOC: EC 15:55
DX: N53.12 Painful ejaculation (principal); F17.200 Nicotine dependence, unspecified, uncomplicated; Z91.048 Other nonmedicinal substance allergy status
CPT/HCPCS: 99283; 96372; 87591; 87491; 81001; 87070; 87661; J0696

== ENCOUNTER 2023-06-22 12:15 | Emergency (ER) | payer OTHER ==
[2023-06-22 12:35] VITALS: BP 124/81; PULSE 82; RESP 20; TEMP 98.4
--- NOTE | 2023-06-22 12:48 | ED ---
General Adult HPI - General Chief complaint: Dental/Oral Stated complaint: cyst/ mouth sore Time Seen by Provider: 06/22/23 12:39 Source: patient, RN notes reviewed, old records reviewed Mode of arrival: ambulatory Limitations: no limitations - History of Present Illness Initial comments: 42 yo male presenting for evaluation of left upper dental pain and facial swelling. Patient's symptoms 7 present for the past 2 weeks. He states he has had some dental issues on his left upper molars in the past. No fever. - Related Data Home Medications Medication Instructions Recorded Confirmed oxyCODONE HCL [oxyCODONE HCL (IR)] 10 mg PO TID 05/05/16 09/30/19 busPIRone HCL 15 mg PO DAILY 09/30/19 09/30/19 busPIRone HCL 30 mg PO HS 09/30/19 09/30/19 Previous Rx's Medication Instructions Recorded EPINEPHrine (Auto Inject) [Epipen] 0.3 mg IM ONCE PRN #1 syringe 05/05/16 Doxycycline Monohydrate [Monodox] 100 mg PO Q12HR #20 cap 09/02/20 Amoxic-Pot Clav 875-125Mg 1 tab PO Q12HR #20 tablet 05/03/21 [Augmentin 875-125] Doxycycline [Vibramycin] 100 mg PO BID #28 cap 03/28/23 Ibuprofen [Motrin] 600 mg PO Q8HR PRN #30 tab 03/28/23 Amoxic-Pot Clav 875-125Mg 1 tab PO Q12HR 10 Days #20 tab 06/22/23 [Augmentin 875-125] Ibuprofen [Motrin] 600 mg PO Q8HR PRN #24 tab 06/22/23 Allergies Allergy/AdvReac Type Severity Reaction Status Date / Time pollen extracts Allergy Rash/Hives Verified 06/22/23 12:31 Review of Systems ROS Statement: Those systems with pertinent positive or pertinent negative responses have been documented in the HPI. ROS Other: All systems not noted in ROS Statement are negative. Past Medical History Past Medical History: Rheumatoid Arthritis (RA) Additional Past Medical History / Comment(s): lower back pain, RA, lupus History of Any Multi-Drug Resistant Organisms: None Reported Past Surgical History: Appendectomy, Back Surgery Past Psychological History: No Psychological Hx Reported Smoking Status: Current some day smoker Past Alcohol Use History: None Reported Past Drug Use History: None Reported General Exam Limitations: no limitations General appearance: alert, in no apparent distress Head exam: Present: atraumatic, normocephalic Eye exam: Present: normal appearance, PERRL ENT exam: Present: other (Tenderness to percussion left upper molars. There is some gingival irritation as well. Minor left-sided facial swelling.) Respiratory exam: Present: normal lung sounds bilaterally. Absent: respiratory distress Cardiovascular Exam: Present: regular rate, normal rhythm GI/Abdominal exam: Present: soft. Absent: distended, tenderness Extremities exam: Present: normal inspection, normal capillary refill Neurological exam: Present: alert, oriented X3, CN II-XII intact. Absent: motor sensory deficit Psychiatric exam: Present: normal affect, normal mood Skin exam: Present: warm, dry, intact. Absent: cyanosis, diaphoretic Course Vital Signs 06/22/23 12:29 Temperature 98.4 F Pulse Rate 82 Respiratory 20 Rate Blood Pressure 124/81 O2 Sat by Pulse 99 Oximetry Medical Decision Making - Medical Decision Making Was pt. sent in by a medical professional or institution ( PA, STUCCO LABORER, urgent care, hospital, or custodial...) When possible be specific @ -No Did you speak to anyone other than the patient for history (EMS, parent, family, police, friend...)? What history was obtained from this source @ -No Did you review nursing and triage notes (agree or disagree)? Why? @ -I reviewed and agree with nursing and triage notes Were old charts reviewed (outside hosp., previous admission, EMS record, old EKG, old radiological studies, urgent care reports/EKG's, custodial records)? Report findings @ -No old charts were reviewed Differential Diagnosis (chest pain, altered mental status, abdominal pain women, abdominal pain men, vaginal bleeding, weakness, fever, dyspnea, syncope, headache, dizziness, GI bleed, back pain, seizure, CVA, palpatations, mental health, musculoskeletal)? @Dental abscess, pulpitis tooth ache EKG interpreted by me (3pts min.). @ -As above X-rays interpreted by me (1pt min.). @ -None done CT interpreted by me (1pt min.). @ -None done U/S interpreted by me (1pt. min.). @ -None done What testing was considered but not performed or refused? (CT, X-rays, U/S, labs)? Why? @ -None What meds were considered but not given or refused? Why? @ -None Did you discuss the management of the patient with other professionals (professionals i.e. , PA, STUCCO LABORER, lab, RT, psych nurse, psychotherapist social worker, center hole reamer, teacher, customs officer, case management coordinator)? Give summary @ -No Was smoking cessation discussed for >3mins.? @ -No Was critical care preformed (if so, how long)? @ -No Were there social determinants of health that impacted care today? How? (Homelessness, low income, unemployed, alcoholism, drug addiction, transportation, low edu. Level, literacy, decrease access to med. care, group home, rehab)? @ -No Was there de-escalation of care discussed even if they declined (Discuss DNR or withdrawal of care, Hospice)? DNR status @ -No What co-morbidities impacted this encounter? (DM, HTN, Smoking, COPD, CAD, Cancer, CVA, ARF, Chemo, Hep., AIDS, mental health diagnosis, sleep apnea, morbid obesity)? @ -None Was patient admitted / discharged? Hospital course, mention meds given and route, prescriptions, significant lab abnormalities, going to OR and other pertinent info. @ -[Patient will be covered for dental abscess with Augmentin. Given Motrin for pain control. He should follow closely with his dentist. Undiagnosed new problem with uncertain prognosis? @ -No Drug Therapy requiring intensive monitoring for toxicity (Heparin, Nitro, Insulin, Cardizem)? @ -No Were any procedures done? @ -No Diagnosis/symptom? @Toothache Acute, or Chronic, or Acute on Chronic? @Acute Uncomplicated (without systemic symptoms) or Complicated (systemic symptoms)? @ -default Side effects of treatment? @ -No Exacerbation, Progression, or Severe Exacerbation? @ -No Poses a threat to life or bodily function? How? (Chest pain, [place], [place], pneumonia, PE, COPD, DKA, ARF, appy, cholecystitis, CVA, Diverticulitis, Homicidal, Suicidal, threat to staff... and all critical care pts) @ -No Disposition Clinical Impression: Toothache Disposition: HOME SELF-CARE Instructions (If sedation given, give patient instructions): Toothache (ED) Additional Instructions: Please follow up with your dentist Prescriptions: Amoxic-Pot Clav 875-125Mg [Augmentin 875-125] 1 tab PO Q12HR 10 Days #20 tab Ibuprofen [Motrin] 600 mg PO Q8HR PRN #24 tab PRN Reason: Pain Is patient prescribed a controlled substance at d/c from ED?: No Referrals: Nonstaff,Physician [Primary Care Provider] - 1-2 days Time of Disposition: 12:47
== END 2023-06-22 13:26 | disposition home or self-care (01) ==
LOC: EC 12:15
DX: K08.89 Other specified disorders of teeth and supporting structures (principal); M06.9 Rheumatoid arthritis, unspecified; F17.200 Nicotine dependence, unspecified, uncomplicated; Z88.8 Allergy status to other drugs, medicaments and biological substances; Z79.899 Other long term (current) drug therapy
CPT/HCPCS: 99282

== ENCOUNTER 2023-09-28 17:27 | Emergency (ER) | payer OTHER ==
[2023-09-28 17:55] VITALS: TEMP 98
[2023-09-28] MEDS ORDERED: NITROGLYCERIN SL TABS 0.4 MG TAB SUBLINGUAL PRN (18:19)
--- NOTE | 2023-09-28 18:23 | ED ---
General Adult HPI - General Source: patient Limitations: no limitations <Jorge Esquivel - Last Filed: 09/28/23 18:28> - General Source: patient, RN notes reviewed Limitations: no limitations <Mars Garcia - Last Filed: 09/28/23 20:04> - General Chief complaint: Recheck/Abnormal Lab/Rx Stated complaint: Paresthesia - History of Present Illness Initial comments: 42-year-old male presenting to the ED with a chief complaint of chest pain onset yesterday. Patient states pain affects the left side of his chest and radiates to his left arm. Patient states pain is intermittent in nature and worse with movement. No shortness of breath. Patient previously here in 2019 and had EKG concerning for STEMI. Cath performed at that time showed no significant coronary disease (Jorge Esquivel) Patient is a pleasant 42-year-old male presenting to the emergency Department with paresthesias. Onset of symptoms was around 2 days ago, mild at this time. Patient has paresthesias of his left chest and left arm. No chest pain. Patient also has some paresthesias of his right side of his face. Patient denies dyspnea. No nausea. No diaphoresis. No history of similar symptoms previously. (Mars Garcia) - Related Data Home Medications Medication Instructions Recorded Confirmed oxyCODONE HCL [oxyCODONE HCL (IR)] 10 mg PO TID 05/05/16 09/30/19 busPIRone HCL 15 mg PO DAILY 09/30/19 09/30/19 busPIRone HCL 30 mg PO HS 09/30/19 09/30/19 Previous Rx's Medication Instructions Recorded EPINEPHrine (Auto Inject) [Epipen] 0.3 mg IM ONCE PRN #1 syringe 05/05/16 Doxycycline Monohydrate [Monodox] 100 mg PO Q12HR #20 cap 09/02/20 Amoxic-Pot Clav 875-125Mg 1 tab PO Q12HR #20 tablet 05/03/21 [Augmentin 875-125] Doxycycline [Vibramycin] 100 mg PO BID #28 cap 03/28/23 Ibuprofen [Motrin] 600 mg PO Q8HR PRN #30 tab 03/28/23 Amoxic-Pot Clav 875-125Mg 1 tab PO Q12HR 10 Days #20 tab 06/22/23 [Augmentin 875-125] Ibuprofen [Motrin] 600 mg PO Q8HR PRN #24 tab 06/22/23 Allergies Allergy/AdvReac Type Severity Reaction Status Date / Time pollen extracts Allergy Rash/Hives Verified 09/28/23 17:42 Review of Systems ROS Other: All systems not noted in ROS Statement are negative. <Jorge Esquivel - Last Filed: 09/28/23 18:28> ROS Other: All systems not noted in ROS Statement are negative. Constitutional: Denies: fever Eyes: Denies: eye pain ENT: Denies: ear pain Respiratory: Denies: dyspnea Cardiovascular: Reports: as per HPI. Denies: chest pain Endocrine: Denies: fatigue Gastrointestinal: Denies: abdominal pain Musculoskeletal: Denies: back pain Neurological: Reports: paresthesias. Denies: headache, weakness <Mars Garcia - Last Filed: 09/28/23 20:04> ROS Statement: Those systems with pertinent positive or pertinent negative responses have been documented in the HPI. Past Medical History Past Medical History: Rheumatoid Arthritis (RA) Additional Past Medical History / Comment(s): lower back pain, RA, lupus History of Any Multi-Drug Resistant Organisms: None Reported Past Surgical History: Appendectomy, Back Surgery Past Psychological History: No Psychological Hx Reported Smoking Status: Current some day smoker Past Alcohol Use History: None Reported Past Drug Use History: None Reported <Jorge Esquivel - Last Filed: 09/28/23 18:28> General Exam Limitations: no limitations <Jorge Esquivel - Last Filed: 09/28/23 18:28> Limitations: no limitations General appearance: alert, in no apparent distress Head exam: Present: normocephalic Eye exam: Present: normal appearance Neck exam: Present: normal inspection Respiratory exam: Present: normal lung sounds bilaterally. Absent: chest wall tenderness Cardiovascular Exam: Present: regular rate, normal rhythm Expanded Peripheral pulses: 2+: Radial (R), Radial (L), Posterior Tibialis (R), Posterior Tibialis (L) GI/Abdominal exam: Present: soft. Absent: tenderness Extremities exam: Present: normal inspection. Absent: pedal edema, calf tenderness Neurological exam: Present: alert Psychiatric exam: Present: normal affect, normal mood Skin exam: Present: normal color <Mars Garcia - Last Filed: 09/28/23 20:04> - General Exam Comments Initial Comments: Visual Physical Exam Vital signs reviewed General: Well-appearing, nontoxic, no acute distress. Head: Normocephalic, atraumatic Eyes: PERRLA, EOMI ENT: Airway patent Chest: Nonlabored breathing Skin: No visual rash, normal skin tone Neuro: Alert and oriented 3 Musculoskeletal: No gross abnormalities (Jorge Esquivel) Course Vital Signs 09/28/23 09/28/23 17:38 17:42 Temperature 98 F Pulse Rate 77 62 Respiratory 18 17 Rate Blood Pressure 133/79 120/68 O2 Sat by Pulse 98 98 Oximetry EKG Findings - EKG Results: EKG: interpreted by ERMD (LVH with repolarization changes), sinus rhythm, normal axis, not changed from: (Previous EKG reviewed 09/30/19) <Mars Garcia - Last Filed: 09/28/23 20:04> Medical Decision Making <Jorge Esquivel - Last Filed: 09/28/23 18:28> - Lab Data Result diagrams: 09/28/23 18:23 09/28/23 18:23 <Mars Garcia - Last Filed: 09/28/23 20:04> - Medical Decision Making Quicknote portion performed. Signed Jorge Esquivel PA-C (Jorge Esquivel) Was pt. sent in by a medical professional or institution (TEDDY Tsang, CVT RN, urgent care, hospital, or longterm...) When possible be specific @ -No Did you speak to anyone other than the patient for history (EMS, parent, family, police, friend...)? What history was obtained from this source @ -No Did you review nursing and triage notes (agree or disagree)? Why? @ -I reviewed and agree with nursing and triage notes Were old charts reviewed (outside hosp., previous admission, EMS record, old EKG, old radiological studies, urgent care reports/EKG's, longterm records)? Report findings @ -Previous heart catheterization and admission reviewed. Previous EKG reviewed Differential Diagnosis (chest pain, altered mental status, abdominal pain women, abdominal pain men, vaginal bleeding, weakness, fever, dyspnea, syncope, headache, dizziness, GI bleed, back pain, seizure, CVA, palpatations, mental health, musculoskeletal)? @ -Differential Dizziness: Benign paroxysmal positional Vertigo, Menieres disease, otitis media, acoustic neuroma, vertebrobasilar insufficiency, cerebellar stroke, encephalitis, hypovolemic, arrhythmia, coronary artery syndrome, anemia, this is not meant to be an all-inclusive listDifferential Chest Pain: Stable Angina, Unstable Angina, STEMI, NSTEMI Aortic Dissection, Pneumothorax, Musculoskeletal, Esophageal Spasm GERD, Cholecystitis, Pancreatitis, Zoster, this is not meant to be an all-inclusive list. EKG interpreted by me (3pts min.). @ -As above X-rays interpreted by me (1pt min.). @ -Chest x-ray shows no acute process CT interpreted by me (1pt min.). @ -None done U/S interpreted by me (1pt. min.). @ -None done What testing was considered but not performed or refused? (CT, X-rays, U/S, labs)? Why? @ -None What meds were considered but not given or refused? Why? @ -None Did you discuss the management of the patient with other professionals (professionals i.e. , PA, CVT RN, lab, RT, psych nurse, neonatal social worker, torch burner, teacher, examining officer, top case assembler)? Give summary @ -No Was smoking cessation discussed for >3mins.? @ -No Was critical care preformed (if so, how long)? @ -No Were there social determinants of health that impacted care today? How? (Homelessness, low income, unemployed, alcoholism, drug addiction, transportation, low edu. Level, literacy, decrease access to med. care, detention, rehab)? @ -No Was there de-escalation of care discussed even if they declined (Discuss DNR or withdrawal of care, Hospice)? DNR status @ -No What co-morbidities impacted this encounter? (DM, HTN, Smoking, COPD, CAD, Cancer, CVA, ARF, Chemo, Hep., AIDS, mental health diagnosis, sleep apnea, morbid obesity)? @ -None Was patient admitted / discharged? Hospital course, mention meds given and route, prescriptions, significant lab abnormalities, going to OR and other pertinent info. @ -Patient reevaluated and resting comfortably in bed. Patient is symptom free at this time. Patient states he has been under some increased stress recently from recent of his mother. Discussion had with patient regarding admission for further evaluation. Patient does refuse this. Patient is felt to be overall low risk. Although patient does have an abnormal EKG actually looks better than previous EKG the patient had a normal heart catheterization. Patient refuses admission but is receptive to follow-up with primary care physician primary urologist. Discussion is had regarding testosterone replacement and patient is advised that if he is doing is he should be doing so the primary care physician and have his levels checked. Undiagnosed new problem with uncertain prognosis? @ -No Drug Therapy requiring intensive monitoring for toxicity (Heparin, Nitro, Insulin, Cardizem)? @ -No Were any procedures done? @ -No Diagnosis/symptom? @ -Paresthesias Acute, or Chronic, or Acute on Chronic? @ -Acute Uncomplicated (without systemic symptoms) or Complicated (systemic symptoms)? @ -default Side effects of treatment? @ -No Exacerbation, Progression, or Severe Exacerbation? @ -No Poses a threat to life or bodily function? How? (Chest pain, [place], [place], pneumonia, PE, COPD, DKA, ARF, appy, cholecystitis, CVA, Diverticulitis, Homicidal, Suicidal, threat to staff... and all critical care pts) @ -No (Mars Garcia) - Lab Data Lab Results 09/28/23 09/28/23 09/28/23 Range/Units 18:23 18:23 18:23 WBC 8.5 (3.8-10.6) k/uL RBC 4.82 (4.30-5.90) m/uL Hgb 14.7 (13.0-17.5) gm/dL Hct 42.2 (39.0-53.0) % MCV 87.6 (80.0-100.0) fL MCH 30.5 (25.0-35.0) pg MCHC 34.8 (31.0-37.0) g/dL RDW 12.3 (11.5-15.5) % Plt Count 345 (150-450) k/uL MPV 7.3 Neutrophils % 65 % Lymphocytes % 26 % Monocytes % 5 % Eosinophils % 3 % Basophils % 1 % Neutrophils # 5.5 (1.3-7.7) k/uL Lymphocytes # 2.2 (1.0-4.8) k/uL Monocytes # 0.4 (0-1.0) k/uL Eosinophils # 0.2 (0-0.7) k/uL Basophils # 0.1 (0-0.2) k/uL PT 10.8 (10.0-12.5) sec INR 1.0 (<1.2) APTT 23.9 (22.0-30.0) sec Sodium 142 (137-145) mmol/L Potassium 4.4 (3.5-5.1) mmol/L Chloride 104 (98-107) mmol/L Carbon Dioxide 27 (22-30) mmol/L Anion Gap 11 mmol/L BUN 14 (9-20) mg/dL Creatinine 0.94 (0.66-1.25) mg/dL Est GFR (CKD-EPI)AfAm >90 (>60 ml/min/1.73 sqM) Est GFR (CKD-EPI)NonAf >90 (>60 ml/min/1.73 sqM) Glucose 101 H (74-99) mg/dL Calcium 9.7 (8.4-10.2) mg/dL Magnesium 2.1 (1.6-2.3) mg/dL Total Bilirubin 0.7 (0.2-1.3) mg/dL AST 44 (17-59) U/L ALT 45 (4-49) U/L Alkaline Phosphatase 78 (38-126) U/L Troponin I (0.000-0.034) ng/mL Total Protein 7.3 (6.3-8.2) g/dL Albumin 4.2 (3.5-5.0) g/dL 09/28/23 Range/Units 18:23 WBC (3.8-10.6) k/uL RBC (4.30-5.90) m/uL Hgb (13.0-17.5) gm/dL Hct (39.0-53.0) % MCV (80.0-100.0) fL MCH (25.0-35.0) pg MCHC (31.0-37.0) g/dL RDW (11.5-15.5) % Plt Count (150-450) k/uL MPV Neutrophils % % Lymphocytes % % Monocytes % % Eosinophils % % Basophils % % Neutrophils # (1.3-7.7) k/uL Lymphocytes # (1.0-4.8) k/uL Monocytes # (0-1.0) k/uL Eosinophils # (0-0.7) k/uL Basophils # (0-0.2) k/uL PT (10.0-12.5) sec INR (<1.2) APTT (22.0-30.0) sec Sodium (137-145) mmol/L Potassium (3.5-5.1) mmol/L Chloride (98-107) mmol/L Carbon Dioxide (22-30) mmol/L Anion Gap mmol/L BUN (9-20) mg/dL Creatinine (0.66-1.25) mg/dL Est GFR (CKD-EPI)AfAm (>60 ml/min/1.73 sqM) Est GFR (CKD-EPI)NonAf (>60 ml/min/1.73 sqM) Glucose (74-99) mg/dL Calcium (8.4-10.2) mg/dL Magnesium (1.6-2.3) mg/dL Total Bilirubin (0.2-1.3) mg/dL AST (17-59) U/L ALT (4-49) U/L Alkaline Phosphatase (38-126) U/L Troponin I <0.012 (0.000-0.034) ng/mL Total Protein (6.3-8.2) g/dL Albumin (3.5-5.0) g/dL Disposition <Jorge Esquievl - Last Filed: 09/28/23 18:28> Is patient prescribed a controlled substance at d/c from ED?: No Time of Disposition: 20:04 <Mars Garcia - Last Filed: 09/28/23 20:04> Clinical Impression: Paresthesia Disposition: HOME SELF-CARE Condition: Stable Instructions (If sedation given, give patient instructions): Paresthesia (ED), Chest Pain (ED) Additional Instructions: Please follow-up with primary care physician in the next one or 2 days for recheck. Please also follow-up with cardiology. Return for chest pain, difficulty breathing, worsening change in symptoms or any other concerns. Referrals: Ajith Preston MD [Primary Care Provider] - 1-2 days Gallo Yates MD [STAFF PHYSICIAN] - 1-2 days
[2023-09-28] MEDS ORDERED: ASPIRIN 81 MG PO STA (18:33)
[2023-09-28 18:45] LABS: Basophils # (A) 0.1 k/uL (0-0.2); Basophils % (A) 1 %; Eosinophils # (A) 0.2 k/uL (0-0.7); Eosinophils % (A) 3 %; HCT 42.2 % (39.0-53.0); HGB 14.7 gm/dL (13.0-17.5); Lymphocytes # (A) 2.2 k/uL (1.0-4.8); Lymphocytes % (A) 26 %; MCH 30.5 pg (25.0-35.0); MCHC 34.8 g/dL (31.0-37.0); MCV 87.6 fL (80.0-100.0); Mean Platelet Volume 7.3; Monocytes # (A) 0.4 k/uL (0-1.0); Monocytes % (A) 5 %; Neutrophils # (A) 5.5 k/uL (1.3-7.7); Neutrophils % (A) 65 %; Platelet Count 345 k/uL (150-450); RBC 4.82 m/uL (4.30-5.90); RDW 12.3 % (11.5-15.5); WBC 8.5 k/uL (3.8-10.6)
[2023-09-28 19:00] LABS: Partial Thromboplastin Time 23.9 sec (22.0-30.0); Prothrombin Time 10.8 sec (10.0-12.5)
[2023-09-28 19:01] LABS: ALT 45 U/L (4-49); AST 44 U/L (17-59); African American GFR (CKD) >90 (>60 ml/min/1.73 sqM); Albumin 4.2 g/dL (3.5-5.0); Alkaline Phosphatase 78 U/L (38-126); Anion Gap 11 mmol/L; Blood Urea Nitrogen 14 mg/dL (9-20); Calcium 9.7 mg/dL (8.4-10.2); Carbon Dioxide 27 mmol/L (22-30); Chloride 104 mmol/L (98-107); Glucose 101 mg/dL (74-99); Magnesium 2.1 mg/dL (1.6-2.3); Non-African American GFR(CKD) >90 (>60 ml/min/1.73 sqM); Potassium 4.4 mmol/L (3.5-5.1); Sodium 142 mmol/L (137-145); Total Bilirubin 0.7 mg/dL (0.2-1.3); Total Protein 7.3 g/dL (6.3-8.2)
--- NOTE | 2023-09-28 19:23 | XR ---
EXAMINATION TYPE: XR chest 1V portable DATE OF EXAM: 09/28/2023 COMPARISON: 04/08/2023 INDICATION: Chest pain TECHNIQUE: Single frontal view of the chest is obtained. FINDINGS: The heart size is normal. The pulmonary vasculature is normal. The lungs are clear. IMPRESSION: 1. No acute pulmonary process.
[2023-09-28 20:23] VITALS: BP 134/97; PULSE 64; RESP 18
== END 2023-09-28 20:13 | disposition home or self-care (01) ==
LOC: EC 17:27
DX: R20.2 Paresthesia of skin (principal); F17.200 Nicotine dependence, unspecified, uncomplicated; Z91.048 Other nonmedicinal substance allergy status
CPT/HCPCS: 36415; 71045; 80053; 83735; 84484; 85025; 85610; 85730; 93005; 99284

== ENCOUNTER → 2023-10-02 | Outpatient (CLI) | payer OTHER ==
--- NOTE | 2023-10-02 23:07 | MR ---
EXAMINATION TYPE: MR lumbar spine wo/w con DATE OF EXAM: 10/02/2023 7:00 AM CLINICAL INDICATION:Male, 42 years old with history of M96.1 POSTLAMINECTOMY SYNDROME; PHH, Low back pain into rt leg, hx surgery. COMPARISON: Radiograph 01/12/2023 TECHNIQUE: Multi planar, multi sequence imaging was performed utilizing: T1-weighted, T2-weighted, a nd turbo inversion recovery imaging of the lumbar spine. IV Contrast: 7.5 cc Gadavist. (None if empty) FINDINGS: Alignment: The lumbar vertebral bodies have preserved heights and alignment. Cord: The conus medullaris and the distal spinal cord appear unremarkable with regards to their signa l intensity and morphology. Bones/Discs: Mild degeneration changes throughout the spine with osteophyte formation and facet joint arthropathy. Intervertebral disc signal is maintained. T12-L1: No evidence of significant spinal canal stenosis or neural foraminal stenosis. L1-L2: No evidence of significant spinal canal stenosis or neural foraminal stenosis. L2-L3: Disc bulge and facet joint arthropathy result in mild spinal canal and mild bilateral neural f oraminal stenosis. L3-L4: Disc bulge and facet joint arthropathy result in mild spinal canal and moderate to severe bila teral neural foraminal stenosis. L4-L5: Disc bulge and facet joint arthropathy result in mild spinal canal and moderate to severe left and severe right neural foraminal stenosis. L5-S1: The disc is rounded posterior morphology without significant spinal canal stenosis. Facet join t arthropathy with severe bilateral bilateral neural foraminal stenosis. No significant spinal canal or neural foraminal stenosis in the remainder of the visualized levels. Other findings: None. IMPRESSION: 1. No definitive evidence of disc herniation or significant spinal canal stenosis. No abnormal postc ontrast enhancement. 2. Moderate disc degeneration with associated osteoarthritic changes. Neural foraminal stenosis wors e at L4-L5 and L5-S1 with severe bilateral.
== END | disposition home or self-care (01) ==
LOC: RADMRIMAIN 06:04
PROVIDERS: ATTEND Pain Medicine Pain Medicine
DX: M96.1 Postlaminectomy syndrome, not elsewhere classified (principal); E29.1 Testicular hypofunction; M51.36 Other intervertebral disc degeneration, lumbar region; M47.816 Spondylosis without myelopathy or radiculopathy, lumbar region; M99.73 Connective tissue and disc stenosis of intervertebral foramina of lumbar region
CPT/HCPCS: 84402; 84403; 72158; 36415; A9585

== ENCOUNTER 2024-04-13 04:08 | Emergency (ER) | payer OTHER ==
[2024-04-13 04:16] VITALS: TEMP 97.8
--- NOTE | 2024-04-13 04:35 | ED ---
Chest Pain HPI - General Chief Complaint: Chest Pain Stated Complaint: Chest pain, Shortness of breath Time Seen by Provider: 04/13/24 04:34 Source: patient Mode of arrival: wheelchair Limitations: no limitations - History of Present Illness Initial Comments: Patient complains of chest tightness that came on around 2 AM today. Patient states that earlier in the day he had been feeling like he could not catch his breath. He states that he had tried to go to sleep and then woke up around 2 AM. He woke with shortness of breath. patient states that the pain subsequently felt like it was going to his left arm and that is when he decided to be seen here. Complaint: chest pain Onset/Timin -: hour(s) Onset: during rest Pain Location: substernal Pain Radiation: LUE Severity: moderate Quality: tightness Consistency: constant Improves With: nothing Worsens With: nothing Anginal Symptoms: dyspnea Treatments Prior to Arrival: none - Related Data Home Medications Medication Instructions Recorded Confirmed oxyCODONE HCL [oxyCODONE HCL (IR)] 10 mg PO TID 05/05/16 09/30/19 busPIRone HCL 15 mg PO DAILY 09/30/19 09/30/19 busPIRone HCL 30 mg PO HS 09/30/19 09/30/19 Previous Rx's Medication Instructions Recorded EPINEPHrine (Auto Inject) [Epipen] 0.3 mg IM ONCE PRN #1 syringe 05/05/16 Doxycycline Monohydrate [Monodox] 100 mg PO Q12HR #20 cap 09/02/20 Amoxic-Pot Clav 875-125Mg 1 tab PO Q12HR #20 tablet 05/03/21 [Augmentin 875-125] Doxycycline [Vibramycin] 100 mg PO BID #28 cap 03/28/23 Ibuprofen [Motrin] 600 mg PO Q8HR PRN #30 tab 03/28/23 Amoxic-Pot Clav 875-125Mg 1 tab PO Q12HR 10 Days #20 tab 06/22/23 [Augmentin 875-125] Ibuprofen [Motrin] 600 mg PO Q8HR PRN #24 tab 06/22/23 Allergies Allergy/AdvReac Type Severity Reaction Status Date / Time pollen extracts Allergy Rash/Hives Verified 04/13/24 04:14 Review of Systems ROS Statement: Those systems with pertinent positive or pertinent negative responses have been documented in the HPI. ROS Other: All systems not noted in ROS Statement are negative. Constitutional: Denies: fever, chills, weakness Respiratory: Reports: dyspnea. Denies: cough Cardiovascular: Reports: chest pain. Denies: palpitations, orthopnea, edema, syncope Gastrointestinal: Denies: abdominal pain, nausea, vomiting, diarrhea Genitourinary: Denies: dysuria, hematuria Musculoskeletal: Denies: back pain Skin: Denies: rash Neurological: Denies: headache, weakness Psychiatric: Reports: anxiety EKG Findings - EKG Results: EKG: interpreted by JAKE, sinus rhythm (Rate 88 bpm), normal axis - Blocks, Morgan, Hypertrophy, ST Abn: Chamber hypertrophy or enlargement: only voltage criteria for left ventricular hypertrophy Repolarization changes or abnormalities: nonspecific abnormality, ST segment, and/or T wave Past Medical History Past Medical History: Rheumatoid Arthritis (RA) Additional Past Medical History / Comment(s): lower back pain, RA, lupus History of Any Multi-Drug Resistant Organisms: None Reported Past Surgical History: Appendectomy, Back Surgery Past Psychological History: No Psychological Hx Reported Smoking Status: Current some day smoker Past Alcohol Use History: None Reported Past Drug Use History: None Reported General Exam Limitations: no limitations General appearance: alert, in no apparent distress Head exam: Present: atraumatic, normocephalic Eye exam: Present: normal appearance. Absent: scleral icterus, conjunctival injection Neck exam: Present: normal inspection Respiratory exam: Present: normal lung sounds bilaterally. Absent: respiratory distress, wheezes, rales, rhonchi, stridor, accessory muscle use Cardiovascular Exam: Present: regular rate, normal rhythm, normal heart sounds. Absent: systolic murmur, diastolic murmur, rubs, gallop GI/Abdominal exam: Present: soft. Absent: distended, tenderness, guarding, rebound, mass Extremities exam: Present: normal inspection, normal capillary refill. Absent: pedal edema, calf tenderness Back exam: Present: normal inspection. Absent: CVA tenderness (R), CVA tenderness (L) Neurological exam: Present: alert Skin exam: Present: warm, dry, intact, normal color. Absent: rash Course Vital Signs 04/13/24 04/13/24 04/13/24 04:14 04:16 05:28 Temperature 97.8 F Pulse Rate 97 86 Pulse Rate [ 84 [place] Washing System Operator ] Respiratory 18 18 Rate Blood Pressure 129/77 122/91 O2 Sat by Pulse 98 100 Oximetry 04/13/24 06:35 Temperature 97.8 F Pulse Rate 73 Pulse Rate [ [place] Washing System Operator ] Respiratory 17 Rate Blood Pressure 119/83 O2 Sat by Pulse 100 Oximetry Chest Pain MDM - MDM I did go to reevaluate the patient and review his studies. The patient states that all of his symptoms had resolved. He feels well and wants to go home. I did discuss that I was going to admit him to see cardiology. The patient states that he does have sales merchandising specialist and wants to follow as outpatient. I stressed that should he have recurrence of any symptoms or develop new symptoms he needs to be back in emergency. Discussed appropriate further care and follow-up The patient had chest x-ray that I interpreted as negative for acute infiltrate, pneumothorax, congestive heart failure Was pt. sent in by a medical professional or institution (, PA, CLINICAL TRIAL DATA MANAGER, urgent c are, hospital, or senior living...) When possible be specific @ -[No] Did you speak to anyone other than the patient for history (EMS, parent, family, police, friend...)? What history was obtained from this source @ -[No] Did you review nursing and triage notes (agree or disagree)? Why? @ -[I reviewed and agree with nursing and triage notes] Were old charts reviewed (outside hosp., previous admission, EMS record, old EKG, old radiological studies, urgent care reports/EKG's, senior living records)? Report findings @ -[No old charts were reviewed] Differential Diagnosis (chest pain, altered mental status, abdominal pain women, abdominal pain men, vaginal bleeding, weakness, fever, dyspnea, syncope, headache, dizziness, GI bleed, back pain, seizure, CVA, palpatations, mental health, musculoskeletal)? @ -[Differential Chest Pain: Stable Angina, Unstable Angina, STEMI, NSTEMI Aortic Dissection, Pneumothorax, Musculoskeletal, Esophageal Spasm GERD, Cholecystitis, Pancreatitis, Zoster, this is not meant to be an all-inclusive list. EKG interpreted by me (3pts min.). @ -[I interpreted as above] X-rays interpreted by me (1pt min.). @ -[I interpreted as above CT interpreted by me (1pt min.). @ -[None done] U/S interpreted by me (1pt. min.). @ -[None done] What testing was considered but not performed or refused? (CT, X-rays, U/S, labs)? Why? @ -[None] What meds were considered but not given or refused? Why? @ -[None] Did you discuss the management of the patient with other professionals (professionals i.e. Dr., PA, CLINICAL TRIAL DATA MANAGER, lab, RT, psych nurse, geriatric social work professor, enterprise mobility architect, teacher, credit review officer, correctional case records supervisor)? Give summary @ -[No] Was smoking cessation discussed for >3mins.? @ -[No] Was critical care preformed (if so, how long)? @ -[No] Were there social determinants of health that impacted care today? How? (Homelessness, low income, unemployed, alcoholism, drug addiction, transportation, low edu. Level, literacy, decrease access to med. care, fdc, rehab)? @ -[No] Was there de-escalation of care discussed even if they declined (Discuss DNR or withdrawal of care, Hospice)? DNR status @ -[No] What co-morbidities impacted this encounter? (DM, HTN, Smoking, COPD, CAD, Cancer, CVA, ARF, Chemo, Hep., AIDS, mental health diagnosis, sleep apnea, morbid obesity)? @ -[None] Was patient admitted / discharged? Hospital course, mention meds given and route, prescriptions, significant lab abnormalities, going to OR and other pertinent info. @ -[hospital course] Undiagnosed new problem with uncertain prognosis? @ -[No] Drug Therapy requiring intensive monitoring for toxicity (Heparin, Nitro, Insulin, Cardizem)? @ -[No] Were any procedures done? @ -[No] Diagnosis/symptom? @ -[Acute chest pain Acute, or Chronic, or Acute on Chronic? @ -[Acute Uncomplicated (without systemic symptoms) or Complicated (systemic symptoms)? @ -[Uncomplicated Side effects of treatment? @ -[No] Exacerbation, Progression, or Severe Exacerbation? @ -[No] Poses a threat to life or bodily function? How? (Chest pain, [place], [place], pneumonia, PE, COPD, DKA, ARF, appy, cholecystitis, CVA, Diverticulitis, Homicidal, Suicidal, threat to staff... and all critical care pts) @ -[There is some risk of threat to life, patient to have close follow-up with cardiology as outpatient Disposition Clinical Impression: Chest pain, Hypokalemia Disposition: HOME SELF-CARE Condition: Good Instructions (If sedation given, give patient instructions): Chest Pain (ED), Hypokalemia (ED) Is patient prescribed a controlled substance at d/c from ED?: No Referrals: Denise Rodriguez DO [Primary Care Provider] - 1-2 days Noe Patterson DO [STAFF PHYSICIAN] - 1-2 days
[2024-04-13 04:57] LABS: Basophils % (A) 0 %; Eosinophils # (A) 0.3 k/uL (0-0.7); Eosinophils % (A) 5 %; HCT 40.8 % (39.0-53.0); HGB 13.6 gm/dL (13.0-17.5); Lymphocytes # (A) 2.3 k/uL (1.0-4.8); Lymphocytes % (A) 35 %; MCH 29.3 pg (25.0-35.0); MCHC 33.3 g/dL (31.0-37.0); Mean Platelet Volume 7.3; Monocytes # (A) 0.3 k/uL (0-1.0); Monocytes % (A) 4 %; Neutrophils # (A) 3.6 k/uL (1.3-7.7); Neutrophils % (A) 54 %; Platelet Count 305 k/uL (150-450); RBC 4.64 m/uL (4.30-5.90); RDW 12.6 % (11.5-15.5); WBC 6.6 k/uL (3.8-10.6)
--- NOTE | 2024-04-13 05:01 | XR ---
EXAM: XR Chest, 2 Views CLINICAL HISTORY: ITS.REASON XR Reason: Chest Pain TECHNIQUE: Frontal and lateral views of the chest. COMPARISON: No relevant prior studies available. IMPRESSION: 1. No acute cardiopulmonary abnormality. 2. Chronic left clavicular fracture.
[2024-04-13 05:04] LABS: Partial Thromboplastin Time 23.6 sec (22.0-30.0); Prothrombin Time 11.1 sec (10.0-12.5)
[2024-04-13 05:12] LABS: ALT 28 U/L (4-49); AST 53 U/L (17-59); African American GFR (CKD) >90 (>60 ml/min/1.73 sqM); Albumin 4.2 g/dL (3.5-5.0); Alkaline Phosphatase 66 U/L (38-126); Anion Gap 7 mmol/L; Blood Urea Nitrogen 10 mg/dL (9-20); Calcium 9.5 mg/dL (8.4-10.2); Carbon Dioxide 25 mmol/L (22-30); Chloride 108 mmol/L (98-107); Glucose 100 mg/dL (74-99); Magnesium 1.7 mg/dL (1.6-2.3); Non-African American GFR(CKD) 90 (>60 ml/min/1.73 sqM); Potassium 3.3 mmol/L (3.5-5.1); Sodium 140 mmol/L (137-145); Total Bilirubin 1.3 mg/dL (0.2-1.3); Total Protein 6.8 g/dL (6.3-8.2)
[2024-04-13] MEDS: POTASSIUM CHLORIDE ER 20 MEQ TAB.ER PO STA (05:25)
[2024-04-13] MEDS: ASPIRIN 81 MG PO STA (05:26)
[2024-04-13 06:48] VITALS: BP 119/83; PULSE 73; RESP 17
== END 2024-04-13 06:35 | disposition home or self-care (01) ==
LOC: EC 04:08 → SUPCPDRO 04:08 → EC 06:35
DX: R07.89 Other chest pain (principal); E87.6 Hypokalemia; F17.200 Nicotine dependence, unspecified, uncomplicated; Z88.8 Allergy status to other drugs, medicaments and biological substances
CPT/HCPCS: 36415; 71046; 80053; 83735; 84484; 85025; 85610; 85730; 93005; 99285

== ENCOUNTER 2024-05-20 22:48 | Emergency (ER) | payer OTHER ==
[2024-05-20 22:56] VITALS: BP 131/91; PULSE 79; RESP 16; TEMP 98.2
[2024-05-20 23:29] LABS: Basophils % (A) 0 %; Eosinophils # (A) 0.3 k/uL (0-0.7); Eosinophils % (A) 4 %; HCT 39.8 % (39.0-53.0); HGB 13.4 gm/dL (13.0-17.5); Lymphocytes # (A) 2.5 k/uL (1.0-4.8); Lymphocytes % (A) 34 %; MCH 29.7 pg (25.0-35.0); MCHC 33.5 g/dL (31.0-37.0); MCV 88.5 fL (80.0-100.0); Mean Platelet Volume 7.2; Monocytes # (A) 0.3 k/uL (0-1.0); Monocytes % (A) 4 %; Neutrophils # (A) 4.1 k/uL (1.3-7.7); Neutrophils % (A) 57 %; Platelet Count 343 k/uL (150-450); RDW 12.6 % (11.5-15.5); WBC 7.2 k/uL (3.8-10.6)
[2024-05-20 23:43] LABS: Prothrombin Time 11.1 sec (10.0-12.5)
[2024-05-20 23:52] LABS: Potassium 3.9 mmol/L (3.5-5.1)
[2024-05-20 23:54] LABS: ALT 24 U/L (4-49); AST 35 U/L (17-59); African American GFR (CKD) >90 (>60 ml/min/1.73 sqM); Albumin 4.5 g/dL (3.5-5.0); Alkaline Phosphatase 69 U/L (38-126); Blood Urea Nitrogen 10 mg/dL (9-20); Carbon Dioxide 24 mmol/L (22-30); Chloride 107 mmol/L (98-107); Glucose 128 mg/dL (74-99); Non-African American GFR(CKD) >90 (>60 ml/min/1.73 sqM); Total Bilirubin 0.9 mg/dL (0.2-1.3); Total Protein 7.3 g/dL (6.3-8.2)
[2024-05-20 23:56] LABS: Anion Gap 8 mmol/L; Magnesium 1.8 mg/dL (1.6-2.3); Sodium 139 mmol/L (137-145)
--- NOTE | 2024-06-05 20:02 | ED ---
Chest Pain HPI - General Chief Complaint: Chest Pain Stated Complaint: Chest pain, ELIAZAR Source: patient, RN notes reviewed, old records reviewed Mode of arrival: ambulatory Limitations: no limitations - History of Present Illness Initial Comments: QN-43 male to the ER for evaluation of chest pain chest pain and anxiety presents here for evaluation of increased stress and anxiety and chest pain MD Complaint: chest pain - Related Data Home Medications Medication Instructions Recorded Confirmed oxyCODONE HCL [oxyCODONE HCL (IR)] 10 mg PO TID 05/05/16 06/04/24 Aspirin EC [Ecotrin] 325 mg PO DAILY PRN 06/04/24 06/04/24 Potassium Gluconate 99 mg PO DAILY PRN 06/04/24 06/04/24 Pregabalin [Lyrica] 50 mg PO TID PRN 06/04/24 06/04/24 tadalafiL 20 mg PO DAILY PRN 06/04/24 06/04/24 Previous Rx's Medication Instructions Recorded LORazepam [Ativan] 0.5 mg PO DAILY PRN 3 Days #3 tab 06/04/24 Allergies Allergy/AdvReac Type Severity Reaction Status Date / Time pollen extracts Allergy Rash/Hives Verified 06/04/24 10:48 Review of Systems ROS Statement: Those systems with pertinent positive or pertinent negative responses have been documented in the HPI. ROS Other: All systems not noted in ROS Statement are negative. Past Medical History Past Medical History: Rheumatoid Arthritis (RA) Additional Past Medical History / Comment(s): lower back pain, RA, lupus History of Any Multi-Drug Resistant Organisms: None Reported Past Surgical History: Appendectomy, Back Surgery Past Psychological History: No Psychological Hx Reported Smoking Status: Current some day smoker Past Alcohol Use History: None Reported Past Drug Use History: None Reported General Exam Limitations: no limitations General appearance: anxious Eye exam: Present: normal appearance ENT exam: Present: normal exam Rectal exam: Present: deferred Neurological exam: Present: alert Psychiatric exam: Present: normal affect, normal mood Course Vital Signs 05/20/24 22:54 Temperature 98.2 F Pulse Rate 79 Respiratory 16 Rate Blood Pressure 131/91 O2 Sat by Pulse 98 Oximetry - Reevaluation(s) Reevaluation #1: QN completed by myself Dr Holt Disposition Clinical Impression: Left against medical advice Disposition: LEFT AGAINST MEDICAL ADVICE Condition: Undetermined Is patient prescribed a controlled substance at d/c from ED?: No Referrals: Denise Rodriguez DO [Primary Care Provider] - 1-2 days
== END 2024-05-20 23:36 | disposition left against medical advice (07) ==
LOC: EC 22:48
CPT/HCPCS: 36415; 80053; 83735; 84484; 85025; 85610; 85730; 93005; 99285

== ENCOUNTER 2024-06-04 09:00 | Emergency (ER) | payer OTHER ==
[2024-06-04 09:03] VITALS: TEMP 97.6
[2024-06-04 09:49] VITALS: RESP 18
[2024-06-04] MEDS: SODIUM CHLORIDE 0.9% 1,000 ML IV STA (10:00)
[2024-06-04] MEDS: LORazepam 0.5 MG TAB PO STA (10:00)
--- NOTE | 2024-06-04 10:11 | ED ---
General Adult HPI - General Chief complaint: Shortness of Breath Stated complaint: Heart palpitations Time Seen by Provider: 06/04/24 09:11 Source: patient, RN notes reviewed, old records reviewed Mode of arrival: ambulatory Limitations: no limitations - History of Present Illness Initial comments: Patient is a 43-year-old male who presents emergency department complaining of heart palpitations as well as some dyspnea. States he does have a history of anxiety. States he also has a history of lupus. Symptoms been ongoing since yesterday. Unknown what is causing his symptoms but no significant complaints at this time of evaluation. Denies triny chest pain, nausea, vomiting, abdominal pain. Presents for further evaluation. - Related Data Home Medications Medication Instructions Recorded Confirmed oxyCODONE HCL [oxyCODONE HCL (IR)] 10 mg PO TID 05/05/16 06/04/24 Aspirin EC [Ecotrin] 325 mg PO DAILY PRN 06/04/24 06/04/24 Potassium Gluconate 99 mg PO DAILY PRN 06/04/24 06/04/24 Pregabalin [Lyrica] 50 mg PO TID PRN 06/04/24 06/04/24 tadalafiL 20 mg PO DAILY PRN 06/04/24 06/04/24 Previous Rx's Medication Instructions Recorded LORazepam [Ativan] 0.5 mg PO DAILY PRN 3 Days #3 tab 06/04/24 Allergies Allergy/AdvReac Type Severity Reaction Status Date / Time pollen extracts Allergy Rash/Hives Verified 06/04/24 10:48 Review of Systems ROS Statement: Those systems with pertinent positive or pertinent negative responses have been documented in the HPI. Review of Systems: CONST: Denies fever EYES: Denies blurry vision ENT: Denies nasal congestion C/V: Endorses heart palpitations that have resolved RESP: Denies shortness of breath GI: Denies abdominal pain : Denies dysuria SKIN: Denies rash. MSK: Denies joint pain. NEURO: Denies headache ROS Other: All systems not noted in ROS Statement are negative. Past Medical History Past Medical History: Rheumatoid Arthritis (RA) Additional Past Medical History / Comment(s): lower back pain, RA, lupus History of Any Multi-Drug Resistant Organisms: None Reported Past Surgical History: Appendectomy, Back Surgery Past Psychological History: No Psychological Hx Reported Smoking Status: Current some day smoker Past Alcohol Use History: None Reported Past Drug Use History: None Reported General Exam - General Exam Comments Initial Comments: General: Appears mildly anxious HEAD: Normal with no signs of head trauma. EYES: PERRLA, EOMI, conjunctiva normal, no discharge. ENT: Hearing grossly intact, normal oropharynx. RESPIRATORY: Clear breath sounds bilaterally. No wheezes, rales, or rhonchi. C/V: Regular rate and rhythm. S1 and S2 auscultated, no edema, peripheral pulses 2+ and intact throughout ABD: Abd is soft, nontender, nondistended EXT: Normal range of motion, no obvious deformity SKIN: No rashes or lesions observed on exposed skin. NEURO: Alert and oriented x 4. Limitations: no limitations Course Vital Signs 06/04/24 06/04/24 06/04/24 09:01 09:44 09:53 Temperature 97.6 F Pulse Rate 108 H 95 90 Respiratory 22 18 18 Rate Blood Pressure 144/91 135/96 O2 Sat by Pulse 99 99 Oximetry 06/04/24 11:33 Temperature Pulse Rate 69 Respiratory 18 Rate Blood Pressure 114/74 O2 Sat by Pulse 99 Oximetry Medical Decision Making - Medical Decision Making Was pt. sent in by a medical professional or institution (, PA, LIP CUTTER, urgent care, hospital, or long term...) When possible be specific @ -No Did you speak to anyone other than the patient for history (EMS, parent, family, police, friend...)? What history was obtained from this source @ -No Did you review nursing and triage notes (agree or disagree)? Why? @ -I reviewed and agree with nursing and triage notes Were old charts reviewed (outside hosp., previous admission, EMS record, old EKG, old radiological studies, urgent care reports/EKG's, long term records)? Report findings @ - Compared with EKG from May 2024 with no obvious significant change at this time. Reviewed cardiac cath from 2019 which revealed no significant obstructive coronary artery disease. Differential Diagnosis (chest pain, altered mental status, abdominal pain women, abdominal pain men, vaginal bleeding, weakness, fever, dyspnea, syncope, headache, dizziness, GI bleed, back pain, seizure, CVA, palpatations, mental health, musculoskeletal)? @ -Differential Palpitations Ventricular arrhythmias, atrial arrhythmias, myocardial infarction, anemia, thyrotoxicosis, electrolyte imbalance, hypokalemia, pulmonary embolism, pulmonary disease, drugs, alcohol, anxiety, stress.... This is not meant to be an all-inclusive list. EKG interpreted by me (3pts min.). @ -As above X-rays interpreted by me (1pt min.). @ -Chest x-ray shows no obvious acute cardiopulmonary process. CT interpreted by me (1pt min.). @ -None done U/S interpreted by me (1pt. min.). @ -None done What testing was considered but not performed or refused? (CT, X-rays, U/S, labs)? Why? @ -None What meds were considered but not given or refused? Why? @ -None Did you discuss the management of the patient with other professionals (pro fessionals i.e. , PA, LIP CUTTER, lab, RT, psych nurse, social work administrator, tongue stitcher, teacher, safety officer, bilingual case manager)? Give summary @ -No Was smoking cessation discussed for >3mins.? @ -No Was critical care preformed (if so, how long)? @ -No Were there social determinants of health that impacted care today? How? (Homelessness, low income, unemployed, alcoholism, drug addiction, transportation, low edu. Level, literacy, decrease access to med. care, fdc, rehab)? @ -No Was there de-escalation of care discussed even if they declined (Discuss DNR or withdrawal of care, Hospice)? DNR status @ -No What co-morbidities impacted this encounter? (DM, HTN, Smoking, COPD, CAD, Cancer, CVA, ARF, Chemo, Hep., AIDS, mental health diagnosis, sleep apnea, morbid obesity)? @ -Anxiety Was patient admitted / discharged? Hospital course, mention meds given and route, prescriptions, significant lab abnormalities, going to OR and other pertinent info. @ -Based on the patient's presentation and physical exam, presents emergency department complaining of heart palpitations that is since resolved. Has a h istory of this. Has seen our department numerous times for this in the past. States it does feel like his anxiety. Patient will get be given a dose of Ativan here in the department as well as IV fluids. We will obtain cardiac workup. He was in agreement this plan. Currently asymptomatic at time of evaluation. EKG shows no signs of acute ischemia. Chest x-ray reveals no obvious acute cardiopulmonary process. Laboratory studies are unremarkable. Contaminated urine. This includes an undetectable troponin. On reevaluation, patient symptoms have resolved. I believe it is safer to be di scharged home at this time. He has not had any chest pain at any point. Palpitations have not returned while patient is in the ER. He was in agreement this plan. Strict return precautions discussed. I will provide the patient with a prescription for Ativan. I instructed the patient to follow up with their PCP in the next 1-3 days.. I explained that the patient should return to the emergency department if they experience any worsening symptoms. Strict return precautions were discussed with the patient. The patient expressed understanding of these instructions. I answered all questions that the patient had. The patient was discharged home in good condition with their prescriptions and follow up information. Undiagnosed new problem with uncertain prognosis? @ -No Drug Therapy requiring intensive monitoring for toxicity (Heparin, Nitro, Insulin, Cardizem)? @ -No Were any procedures done? @ -No Diagnosis/symptom? @ -Anxiety, heart palpitations Acute, or Chronic, or Acute on Chronic? @ -Acute Uncomplicated (without systemic symptoms) or Complicated (systemic symptoms)? @ -Uncomplicated Side effects of treatment? @ -None Exacerbation, Progression, or Severe Exacerbation] @ -No Poses a threat to life or bodily function? @ -Unlikely - Lab Data Result diagrams: 06/04/24 09:53 06/04/24 09:53 Lab Results 06/04/24 06/04/24 06/04/24 Range/Units 09:53 09:53 09:53 WBC 6.5 (3.8-10.6) k/uL RBC 4.78 (4.30-5.90) m/uL Hgb 14.2 (13.0-17.5) gm/dL Hct 41.6 (39.0-53.0) % MCV 87.1 (80.0-100.0) fL MCH 29.8 (25.0-35.0) pg MCHC 34.2 (31.0-37.0) g/dL RDW 12.5 (11.5-15.5) % Plt Count 279 (150-450) k/uL MPV 7.6 Neutrophils % 69 % Lymphocytes % 21 % Monocytes % 4 % Eosinophils % 4 % Basophils % 0 % Neutrophils # 4.4 (1.3-7.7) k/uL Lymphocytes # 1.4 (1.0-4.8) k/uL Monocytes # 0.3 (0-1.0) k/uL Eosinophils # 0.3 (0-0.7) k/uL Basophils # 0.0 (0-0.2) k/uL PT 11.3 (10.0-12.5) sec INR 1.0 (<1.2) APTT 24.6 (22.0-30.0) sec Sodium 140 (137-145) mmol/L Potassium 3.7 (3.5-5.1) mmol/L Chloride 104 (98-107) mmol/L Carbon Dioxide 28 (22-30) mmol/L Anion Gap 8 mmol/L BUN 8 L (9-20) mg/dL Creatinine 0.96 (0.66-1.25) mg/dL Est GFR (CKD-EPI)AfAm >90 (>60 ml/min/1.73 sqM) Est GFR (CKD-EPI)NonAf >90 (>60 ml/min/1.73 sqM) Glucose 94 (74-99) mg/dL Calcium 9.7 (8.4-10.2) mg/dL Magnesium 1.8 (1.6-2.3) mg/dL Total Bilirubin 1.4 H (0.2-1.3) mg/dL AST 45 (17-59) U/L ALT 27 (4-49) U/L Alkaline Phosphatase 65 (38-126) U/L Troponin I (0.000-0.034) ng/mL Total Protein 7.1 (6.3-8.2) g/dL Albumin 4.4 (3.5-5.0) g/dL Urine Color Urine Appearance (Clear) Urine pH (5.0-8.0) Ur Specific [place] (1.001-1.035) Urine Protein (Negative) Urine Glucose (UA) (Negative) Urine Ketones (Negative) Urine Blood (Negative) Urine Nitrite (Negative) Urine Bilirubin (Negative) Urine Urobilinogen (<2.0) mg/dL Ur Leukocyte Esterase (Negative) Urine RBC (0-5) /hpf Urine WBC (0-5) /hpf Ur Squamous Epith Cells (0-4) /hpf Urine Bacteria (None) /hpf Urine Mucus (None) /hpf Influenza Type A (PCR) (Not Detectd) Influenza Type B (PCR) (Not Detectd) RSV (PCR) (Not Detectd) SARS-CoV-2 (PCR) (Not Detectd) 06/04/24 06/04/24 06/04/24 Range/Units 09:53 09:53 09:59 WBC (3.8-10.6) k/uL RBC (4.30-5.90) m/uL Hgb (13.0-17.5) gm/dL Hct (39.0-53.0) % MCV (80.0-100.0) fL MCH (25.0-35.0) pg MCHC (31.0-37.0) g/dL RDW (11.5-15.5) % Plt Count (150-450) k/uL MPV Neutrophils % % Lymphocytes % % Monocytes % % Eosinophils % % Basophils % % Neutrophils # (1.3-7.7) k/uL Lymphocytes # (1.0-4.8) k/uL Monocytes # (0-1.0) k/uL Eosinophils # (0-0.7) k/uL Basophils # (0-0.2) k/uL PT (10.0-12.5) sec INR (<1.2) APTT (22.0-30.0) sec Sodium (137-145) mmol/L Potassium (3.5-5.1) mmol/L Chloride (98-107) mmol/L Carbon Dioxide (22-30) mmol/L Anion Gap mmol/L BUN (9-20) mg/dL Creatinine (0.66-1.25) mg/dL Est GFR (CKD-EPI)AfAm (>60 ml/min/1.73 sqM) Est GFR (CKD-EPI)NonAf (>60 ml/min/1.73 sqM) Glucose (74-99) mg/dL Calcium (8.4-10.2) mg/dL Magnesium (1.6-2.3) mg/dL Total Bilirubin (0.2-1.3) mg/dL AST (17-59) U/L ALT (4-49) U/L Alkaline Phosphatase (38-126) U/L Troponin I <0.012 (0.000-0.034) ng/mL Total Protein (6.3-8.2) g/dL Albumin (3.5-5.0) g/dL Urine Color Yellow Urine Appearance Cloudy (Clear) Urine pH 6.0 (5.0-8.0) Ur Specific [place] 1.016 (1.001-1.035) Urine Protein Trace H (Negative) Urine Glucose (UA) Negative (Negative) Urine Ketones Negative (Negative) Urine Blood Moderate H (Negative) Urine Nitrite Positive (Negative) Urine Bilirubin Negative (Negative) Urine Urobilinogen <2.0 (<2.0) mg/dL Ur Leukocyte Esterase Small H (Negative) Urine RBC 2 (0-5) /hpf Urine WBC 17 H (0-5) /hpf Ur Squamous Epith Cells <1 (0-4) /hpf Urine Bacteria Few H (None) /hpf Urine Mucus Occasional H (None) /hpf Influenza Type A (PCR) Not Detected (Not Detectd) Influenza Type B (PCR) Not Detected (Not Detectd) RSV (PCR) Not Detected (Not Detectd) SARS-CoV-2 (PCR) Not Detected (Not Detectd) - EKG Data -: EKG Interpreted by Me EKG Comments: 12-lead Electrocardiogram Interpretation Note EKG was reviewed and interpreted by myself. 12-lead ECG performed at 0913 is interpreted by me as revealing normal sinus rhythm at a rate of 85 beats per minute. [place] is normal. SD interval is 136 ms, QRS duration is 95 ms, QTc is 411 ms.. There were no ST or T wave abnormalities to suggest myocardial ischemia or injury. R wave progression across the precordium was satisfactory. By my interpretation this EKG is non-diagnostic for acute ischemia. Compared with EKG from May 2024 with no obvious significant change at this time. Reviewed cardiac cath from 2019 which revealed no significant obstructive coronary artery disease. Disposition Clinical Impression: Heart palpitations, Anxiety Disposition: HOME SELF-CARE Condition: Good Instructions (If sedation given, give patient instructions): Heart Palpitations (ED), Anxiety (ED) Prescriptions: LORazepam [Ativan] 0.5 mg PO DAILY PRN 3 Days #3 tab PRN Reason: Anxiety Is patient prescribed a controlled substance at d/c from ED?: No Referrals: Denise Rodriguez DO [Primary Care Provider] - 1-2 days Time of Disposition: 11:21
[2024-06-04 10:16] LABS: Basophils % (A) 0 %; Eosinophils # (A) 0.3 k/uL (0-0.7); Eosinophils % (A) 4 %; HCT 41.6 % (39.0-53.0); HGB 14.2 gm/dL (13.0-17.5); Lymphocytes # (A) 1.4 k/uL (1.0-4.8); Lymphocytes % (A) 21 %; MCH 29.8 pg (25.0-35.0); MCHC 34.2 g/dL (31.0-37.0); MCV 87.1 fL (80.0-100.0); Mean Platelet Volume 7.6; Monocytes # (A) 0.3 k/uL (0-1.0); Monocytes % (A) 4 %; Neutrophils # (A) 4.4 k/uL (1.3-7.7); Neutrophils % (A) 69 %; Platelet Count 279 k/uL (150-450); RBC 4.78 m/uL (4.30-5.90); RDW 12.5 % (11.5-15.5); WBC 6.5 k/uL (3.8-10.6)
[2024-06-04 10:26] LABS: Partial Thromboplastin Time 24.6 sec (22.0-30.0); Prothrombin Time 11.3 sec (10.0-12.5)
[2024-06-04 10:31] LABS: ALT 27 U/L (4-49); AST 45 U/L (17-59); African American GFR (CKD) >90 (>60 ml/min/1.73 sqM); Albumin 4.4 g/dL (3.5-5.0); Alkaline Phosphatase 65 U/L (38-126); Anion Gap 8 mmol/L; Blood Urea Nitrogen 8 mg/dL (9-20); Calcium 9.7 mg/dL (8.4-10.2); Carbon Dioxide 28 mmol/L (22-30); Chloride 104 mmol/L (98-107); Glucose 94 mg/dL (74-99); Magnesium 1.8 mg/dL (1.6-2.3); Non-African American GFR(CKD) >90 (>60 ml/min/1.73 sqM); Potassium 3.7 mmol/L (3.5-5.1); Sodium 140 mmol/L (137-145); Total Bilirubin 1.4 mg/dL (0.2-1.3); Total Protein 7.1 g/dL (6.3-8.2)
[2024-06-04 10:35] LABS: Appearance,Urine Cloudy (Clear); Bacteria,Urine Few /hpf; Bilirubin,Urine Negative (Negative); Blood,Urine Moderate (Negative); Color,Urine Yellow; Glucose,Urine (UA) Negative (Negative); Ketones,Urine Negative (Negative); Leukocyte Esterase,Urine Small (Negative); Mucus,Urine Occasional /hpf; Nitrite,Urine Positive (Negative); Protein,Urine Trace (Negative); RBC,Urine 2 /hpf (0-5); Specific Gravity,Urine 1.016 (1.001-1.035); Squamous Epithelial Cell,Urine <1 /hpf (0-4); Urobilinogen,Urine <2.0 mg/dL (<2.0); WBC,Urine 17 /hpf (0-5)
--- NOTE | 2024-06-04 10:38 | XR ---
EXAMINATION TYPE: XR chest 2V DATE OF EXAM: 06/04/2024 COMPARISON: 04/13/2024 INDICATION: Chest pain, tachycardia TECHNIQUE: Frontal and lateral views of the chest are obtained. FINDINGS: The heart size is normal. The pulmonary vasculature is normal. The lungs are clear. IMPRESSION: 1. No acute pulmonary process. [facility] Stacie Gates, , 06/04/2024 10:36 AM
[2024-06-04 11:34] VITALS: BP 114/74; PULSE 69
== END 2024-06-04 11:34 | disposition home or self-care (01) ==
LOC: EC 09:00
CPT/HCPCS: 36415; 71046; 80053; 81001; 83735; 84484; 85025; 85610; 85730; 87636; 93005; 96360; 99285

== ENCOUNTER 2024-11-21 14:07 | Emergency (ER) | payer OTHER ==
--- NOTE | 2024-11-21 14:23 | ED ---
General Adult HPI - General Chief complaint: ENT Stated complaint: sinus/throat issues Time Seen by Provider: 11/21/24 14:10 Source: patient, RN notes reviewed, old records reviewed Mode of arrival: ambulatory Limitations: no limitations - History of Present Illness Initial comments: 43-year-old male presenting for evaluation of sore throat, nasal congestion, left-sided earache. Patient symptoms have been present for the past 24 to 48 hours. No fever. No chest pain or difficulty breathing. - Related Data Home Medications Medication Instructions Recorded Confirmed oxyCODONE HCL [oxyCODONE HCL (IR)] 10 mg PO TID 05/05/16 06/04/24 Aspirin EC [Ecotrin] 325 mg PO DAILY PRN 06/04/24 06/04/24 Potassium Gluconate 99 mg PO DAILY PRN 06/04/24 06/04/24 Pregabalin [Lyrica] 50 mg PO TID PRN 06/04/24 06/04/24 tadalafiL 20 mg PO DAILY PRN 06/04/24 06/04/24 Previous Rx's Medication Instructions Recorded LORazepam [Ativan] 0.5 mg PO DAILY PRN 3 Days #3 tab 06/04/24 Amoxic-Pot Clav 875-125Mg 1 tab PO Q12HR 10 Days #20 tab 11/21/24 [Augmentin 875-125] Allergies Allergy/AdvReac Type Severity Reaction Status Date / Time pollen extracts Allergy Rash/Hives Verified 11/21/24 14:11 Review of Systems ROS Statement: Those systems with pertinent positive or pertinent negative responses have been documented in the HPI. ROS Other: All systems not noted in ROS Statement are negative. Past Medical History Past Medical History: Rheumatoid Arthritis (RA) Additional Past Medical History / Comment(s): lower back pain, RA, lupus History of Any Multi-Drug Resistant Organisms: None Reported Past Surgical History: Appendectomy, Back Surgery Past Psychological History: No Psychological Hx Reported Smoking Status: Current some day smoker Past Alcohol Use History: None Reported Past Drug Use History: None Reported General Exam Limitations: no limitations General appearance: alert, in no apparent distress Head exam: Present: atraumatic, normocephalic ENT exam: Absent: normal oropharynx (Mild pharyngeal erythema), TM's normal bilaterally (Opacified left tympanic membrane) Neck exam: Present: normal inspection. Absent: tenderness, meningismus Respiratory exam: Present: normal lung sounds bilaterally. Absent: respiratory distress, wheezes Cardiovascular Exam: Present: regular rate, normal rhythm Extremities exam: Present: normal inspection Neurological exam: Present: alert, oriented X3 Psychiatric exam: Present: normal affect, normal mood Skin exam: Present: warm, dry, intact Course Vital Signs 11/21/24 14:08 Temperature 98.0 F Pulse Rate 93 Respiratory 15 Rate Blood Pressure 132/97 O2 Sat by Pulse 99 Oximetry Medical Decision Making - Medical Decision Making Was pt. sent in by a medical professional or institution (, TEDDY, DOG FOOD SHREDDER OPERATOR, urgent care, hospital, or assisted...) When possible be specific @ -No Did you speak to anyone other than the patient for history (EMS, parent, family, police, friend...)? What history was obtained from this source @ -No Did you review nursing and triage notes (agree or disagree)? Why? @ -I reviewed and agree with nursing and triage notes Were old charts reviewed (outside hosp., previous admission, EMS record, old EKG, old radiological studies, urgent care reports/EKG's, assisted records)? Report findings @ -No old charts were reviewed Differential Diagnosis viral pharyngitis, strep pharyngitis, peritonsillar abscess EKG interpreted by me (3pts min.). @ -As above X-rays interpreted by me (1pt min.). @ -None done CT interpreted by me (1pt min.). @ -None done U/S interpreted by me (1pt. min.). @ -None done What testing was considered but not performed or refused? (CT, X-rays, U/S, labs)? Why? @ -None What meds were considered but not given or refused? Why? @ -None Did you discuss the management of the patient with other professionals (professionals i.e. TEDDY Tsang, DOG FOOD SHREDDER OPERATOR, lab, RT, psych nurse, social media project manager, propellant charge loader, teacher, surface to air weapons officer, showcase trimmer)? Give summary @ -No Was smoking cessation discussed for >3mins.? @ -No Was critical care preformed (if so, how long)? @ -No Were there social determinants of health that impacted care today? How? (Homelessness, low income, unemployed, alcoholism, drug addiction, transportation, low edu. Level, literacy, decrease access to med. care, snf, rehab)? @ -No Was there de-escalation of care discussed even if they declined (Discuss DNR or withdrawal of care, Hospice)? DNR status @ -No What co-morbidities impacted this encounter? (DM, HTN, Smoking, COPD, CAD, Cancer, CVA, ARF, Chemo, Hep., AIDS, mental health diagnosis, sleep apnea, morbid obesity)? @ -None Was patient admitted / discharged? Hospital course, mention meds given and route, prescriptions, significant lab abnormalities, going to OR and other per tinent info. @ -[43-year-old male with sore throat, left ear pain, patient testing positive for strep, started on Augmentin, return parameters discussed, Undiagnosed new problem with uncertain prognosis? @ -No Drug Therapy requiring intensive monitoring for toxicity (Heparin, Nitro, Insulin, Cardizem)? @ -No Were any procedures done? @ -No Diagnosis/symptom? @Strep pharyngitis Acute, or Chronic, or Acute on Chronic? @ -Acute Uncomplicated (without systemic symptoms) or Complicated (systemic symptoms)? @ -Default Side effects of treatment? @ -No Exacerbation, Progression, or Severe Exacerbation? @ -No Poses a threat to life or bodily function? How? (Chest pain, [place], [place], pneumonia, PE, COPD, DKA, ARF, appy, cholecystitis, CVA, Diverticulitis, Homicidal, Suicidal, threat to staff... and all critical care pts) @ -No - Lab Data Lab Results 11/21/24 Range/Units 14:37 Group A Strep (PCR) DETECTED A (Not Detectd) Disposition Clinical Impression: Strep pharyngitis Disposition: HOME SELF-CARE Condition: Fair Instructions (If sedation given, give patient instructions): Strep Throat (ED) Prescriptions: Amoxic-Pot Clav 875-125Mg [Augmentin 875-125] 1 tab PO Q12HR 10 Days #20 tab Is patient prescribed a controlled substance at d/c from ED?: No Referrals: Danna Garcia DO [Primary Care Provider] - 1-2 days Time of Disposition: 15:30
[2024-11-21 15:39] LABS: Influenza A Not Detected (Not Detectd); Influenza B Not Detected (Not Detectd); RSV Not Detected (Not Detectd)
[2024-11-21 15:42] VITALS: BP 130/94; PULSE 90; RESP 19; TEMP 98.1
== END 2024-11-21 15:41 | disposition home or self-care (01) ==
LOC: EC 14:07
DX: J02.0 Streptococcal pharyngitis (principal); B95.0 Streptococcus, group A, as the cause of diseases classified elsewhere; F17.200 Nicotine dependence, unspecified, uncomplicated
CPT/HCPCS: 87636; 87651; 99283

== ENCOUNTER 2025-02-19 21:10 | Emergency (ER) | payer SELFPAY ==
[2025-02-19 22:33] LABS: Appearance,Urine Clear (Clear); Bilirubin,Urine Negative (Negative); Blood,Urine Moderate (Negative); Color,Urine Colorless; Glucose,Urine (UA) Negative (Negative); Ketones,Urine Negative (Negative); Leukocyte Esterase,Urine Negative (Negative); Nitrite,Urine Negative (Negative); Protein,Urine Negative (Negative); RBC,Urine 1 /hpf (0-5); Specific Gravity,Urine 1.014 (1.001-1.035); Squamous Epithelial Cell,Urine <1 /hpf (0-4); Urobilinogen,Urine <2.0 mg/dL (<2.0); WBC,Urine 2 /hpf (0-5)
[2025-02-19] MEDS: cefTRIAXone 250 MG VIAL IM STA (22:34)
[2025-02-19] MEDS: DOXYCYCLINE 100 MG TABLET PO ONE (22:34)
--- NOTE | 2025-02-19 22:35 | ED ---
Male Urogenital HPI - General Chief complaint: Urogenital Stated complaint: bilateral leg swelling Time Seen by Provider: 02/19/25 22:10 Source: patient, RN notes reviewed Mode of arrival: ambulatory Limitations: no limitations - History of Present Illness Initial comments: 44-year-old male presenting for STD testing. Patient reports he has been having dysuria and urinary urgency over the past 2 days. Reports 1 male partner who was supposedly unfaithful to him and tested positive for herpes last week. Patient denies any lesions or ulcerations on the genital or anus. Denies testicular pain or swelling, fevers, abdominal pain. - Related Data Home Medications Medication Instructions Recorded Confirmed oxyCODONE HCL [oxyCODONE HCL (IR)] 10 mg PO TID 05/05/16 06/04/24 Aspirin EC [Ecotrin] 325 mg PO DAILY PRN 06/04/24 06/04/24 Potassium Gluconate 99 mg PO DAILY PRN 06/04/24 06/04/24 Pregabalin [Lyrica] 50 mg PO TID PRN 06/04/24 06/04/24 tadalafiL 20 mg PO DAILY PRN 06/04/24 06/04/24 Previous Rx's Medication Instructions Recorded LORazepam [Ativan] 0.5 mg PO DAILY PRN 3 Days #3 tab 06/04/24 Amoxic-Pot Clav 875-125Mg 1 tab PO Q12HR 10 Days #20 tab 11/21/24 [Augmentin 875-125] Doxycycline [Vibramycin] 100 mg PO BID 7 Days #14 capsule 02/19/25 Allergies Allergy/AdvReac Type Severity Reaction Status Date / Time pollen extracts Allergy Rash/Hives Verified 02/19/25 21:15 Review of Systems ROS Statement: Those systems with pertinent positive or pertinent negative responses have been documented in the HPI. ROS Other: All systems not noted in ROS Statement are negative. Past Medical History Past Medical History: Rheumatoid Arthritis (RA) Additional Past Medical History / Comment(s): lower back pain, RA, lupus History of Any Multi-Drug Resistant Organisms: None Reported Past Surgical History: Appendectomy, Back Surgery Past Psychological History: No Psychological Hx Reported Smoking Status: Former smoker Past Alcohol Use History: None Reported Past Drug Use History: None Reported General Exam Limitations: no limitations General appearance: alert, in no apparent distress Head exam: Present: atraumatic, normocephalic, normal inspection GI/Abdominal exam: Present: soft, normal bowel sounds. Absent: distended, tenderness, guarding, rebound, rigid exam: Present: normal inspection Course Vital Signs 02/19/25 21:12 Temperature 97.9 F Pulse Rate 87 Respiratory 18 Rate Blood Pressure 138/92 O2 Sat by Pulse 98 Oximetry Medical Decision Making - Medical Decision Making Was pt. sent in by a medical professional or institution ([facility] Tsang, [employer], urgent care, hospital, or detention...) When possible be specific @ -No Did you speak to anyone other than the patient for history (EMS, parent, family, police, friend...)? What history was obtained from this source @ -No Did you review nursing and triage notes (agree or disagree)? Why? @ -I reviewed and agree with nursing and triage notes Were old charts reviewed (outside hosp., previous admission, EMS record, old EKG, old radiological studies, urgent care reports/EKG's, detention records)? Report findings @ -No old charts were reviewed Differential Diagnosis (chest pain, altered mental status, abdominal pain women, abdominal pain men, vaginal bleeding, weakness, fever, dyspnea, syncope, headache, dizziness, GI bleed, back pain, seizure, CVA, palpatations, mental health, musculoskeletal)? @ -Urinary tract infection, sexually transmitted infection, kidney stone EKG interpreted by me (3pts min.). @ -None X-rays interpreted by me (1pt min.). @ -None done CT interpreted by me (1pt min.). @ -None done U/S interpreted by me (1pt. min.). @ -None done What testing was considered but not performed or refused? (CT, X-rays, U/S, labs)? Why? @ -None What meds were considered but not given or refused? Why? @ -None Did you discuss the management of the patient with other professionals (professionals i.e. [facility] Tsang, [employer], lab, RT, psych nurse, social work administrator, intellectual property lawyer, teacher, front desk officer, oil field caser)? Give summary @ -No Was smoking cessation discussed for >3mins.? @ -No Was critical care preformed (if so, how long)? @ -No Were there social determinants of health that impacted care today? How? (Homelessness, low income, unemployed, alcoholism, drug addiction, transportation, low edu. Level, literacy, decrease access to med. care, [facility], rehab)? @ -No Was there de-escalation of care discussed even if they declined (Discuss DNR or withdrawal of care, Hospice)? DNR status @ -No What co-morbidities impacted this encounter? (DM, HTN, Smoking, COPD, CAD, Cancer, CVA, ARF, Chemo, Hep., AIDS, mental health diagnosis, sleep apnea, morbid obesity)? @ -None Was patient admitted / discharged? Hospital course, mention meds given and route, prescriptions, significant lab abnormalities, going to OR and other pertinent info. @ -Discharge. 44-year-old male presenting for dysuria. Patient is afebrile wit h no CVA tenderness. Abdomen soft and nonsurgical. No penile lesions or discharge. Due to symptoms and possible exposure, patient will be treated empirically for STDs. Urinalysis remarkable for moderate blood, negative for white blood cells. Urine culture sent. Urine chlamydia and gonorrhea sent. Patient given IM Rocephin and outpatient course of doxycycline. Discussed with patient that for full STD screening patient must follow-up with the health department. Appropriate return precautions and follow-up care discussed. Advised to refrain from sexual activity until full course of antibiotic is completed and patient is symptom-free. Case was discussed with my ED attending Dr. Youssef. Undiagnosed new problem with uncertain prognosis? @ -No Drug Therapy requiring intensive monitoring for toxicity (Heparin, Nitro, Insulin, Cardizem)? @ -No Were any procedures done? @ -No Diagnosis/symptom? @ -Sexually transmitted infection, dysuria Acute, or Chronic, or Acute on Chronic? @ -Acute Uncomplicated (without systemic symptoms) or Complicated (systemic symptoms)? @ -Uncomplicated Side effects of treatment? @ -No Exacerbation, Progression, or Severe Exacerbation? @ -No Poses a threat to life or bodily function? How? (Chest pain, USA, ID, pneumonia, PE, COPD, DKA, ARF, appy, cholecystitis, CVA, Diverticulitis, Homicidal, Suicidal, threat to staff... and all critical care pts) @ -No - Lab Data Lab Results 02/19/25 Range/Units 22:21 Urine Color Colorless Urine Appearance Clear (Clear) Urine pH 5.0 (5.0-8.0) Ur Specific [place] 1.014 (1.001-1.035) Urine Protein Negative (Negative) Urine Glucose (UA) Negative (Negative) Urine Ketones Negative (Negative) Urine Blood Moderate H (Negative) Urine Nitrite Negative (Negative) Urine Bilirubin Negative (Negative) Urine Urobilinogen <2.0 (<2.0) mg/dL Ur Leukocyte Esterase Negative (Negative) Urine RBC 1 (0-5) /hpf Urine WBC 2 (0-5) /hpf Ur Squamous Epith Cells <1 (0-4) /hpf Disposition Clinical Impression: STD (sexually transmitted disease), Dysuria Disposition: HOME SELF-CARE Condition: Stable Instructions (If sedation given, give patient instructions): Sexually Transmit stone Diseases (ED) Additional Instructions: Take doxycycline twice daily for 7 days. Follow-up with the health department for complete STD testing. Refrain from intercourse until antibiotic course is complete and you are symptom-free. Please return to the Emergency Department if symptoms worsen or any other concerns. Prescriptions: Doxycycline [Vibramycin] 100 mg PO BID 7 Days #14 capsule Is patient prescribed a controlled substance at d/c from ED?: No Referrals: Danna Garcia DO [Primary Care Provider] - 1-2 days Time of Disposition: 23:05
[2025-02-19 23:22] VITALS: BP 128/81; PULSE 72; RESP 16; TEMP 98.3
[2025-02-22 14:53] LABS: N. gonorrhoeae,PCR Negative (Negative)
[2025-02-22 14:56] LABS: C. trachomatis,PCR Negative (Negative)
== END 2025-02-19 23:13 | disposition home or self-care (01) ==
LOC: EC 21:10
DX: A64 Unspecified sexually transmitted disease (principal); Z87.891 Personal history of nicotine dependence; Z88.8 Allergy status to other drugs, medicaments and biological substances
CPT/HCPCS: 81001; 87491; 87591; 99283; 96372; J0696

== ENCOUNTER 2025-03-30 04:01 | Emergency (ER) | payer SELFPAY ==
[2025-03-30 04:07] VITALS: RESP 18
--- NOTE | 2025-03-30 04:10 | ED ---
Nausea/Vomiting/Diarrhea HPI - General Chief complaint: Nausea/Vomiting/Diarrhea Stated complaint: Vomiting, chest pressure, SOB Time Seen by Provider: 03/30/25 04:04 Source: patient, RN notes reviewed, old records reviewed Mode of arrival: ambulatory Limitations: no limitations - History of Present Illness Initial comments: This is a 44-year-old male to ER for evaluation of nausea vomiting palpitations tachycardia positive for low began to persist more walk symptoms persist to walk to ER yesterday symptoms persisted even more his he felt the room get better, patient does admit to mild anxiety with nausea and focal episodes of vomiting prior to arrival concern for* MD complaint: nausea, vomiting Associated Abdominal Pain: No Radiation: none Severity: mild Severity scale (1-10): 2 Consistency: constant Improves with: none Worsens with: none Associated Symptoms: loss of appetite, nausea/vomiting - Related Data Home Medications Medication Instructions Recorded Confirmed oxyCODONE HCL [oxyCODONE HCL (IR)] 10 mg PO TID 05/05/16 06/04/24 Aspirin EC [Ecotrin] 325 mg PO DAILY PRN 06/04/24 06/04/24 Potassium Gluconate 99 mg PO DAILY PRN 06/04/24 06/04/24 Pregabalin [Lyrica] 50 mg PO TID PRN 06/04/24 06/04/24 tadalafiL 20 mg PO DAILY PRN 06/04/24 06/04/24 Previous Rx's Medication Instructions Recorded LORazepam [Ativan] 0.5 mg PO DAILY PRN 3 Days #3 tab 06/04/24 Amoxic-Pot Clav 875-125Mg 1 tab PO Q12HR 10 Days #20 tab 11/21/24 [Augmentin 875-125] Doxycycline [Vibramycin] 100 mg PO BID 7 Days #14 capsule 02/19/25 Allergies Allergy/AdvReac Type Severity Reaction Status Date / Time pollen extracts Allergy Rash/Hives Verified 03/30/25 04:07 Review of Systems ROS Statement: Those systems with pertinent positive or pertinent negative responses have been documented in the HPI. ROS Other: All systems not noted in ROS Statement are negative. Past Medical History Past Medical History: Rheumatoid Arthritis (RA) Additional Past Medical History / Comment(s): lower back pain, RA, lupus History of Any Multi-Drug Resistant Organisms: None Reported Past Surgical History: Appendectomy, Back Surgery Past Psychological History: No Psychological Hx Reported Smoking Status: Former smoker Past Alcohol Use History: None Reported Past Drug Use History: None Reported General Exam Limitations: no limitations General appearance: alert, in no apparent distress Head exam: Present: atraumatic, normocephalic, normal inspection Eye exam: Present: normal appearance, PERRL, EOMI. Absent: scleral icterus, co njunctival injection, periorbital swelling ENT exam: Present: normal exam, mucous membranes moist Neck exam: Present: normal inspection. Absent: tenderness, meningismus, lymphadenopathy Respiratory exam: Present: normal lung sounds bilaterally. Absent: respiratory distress, wheezes, rales, rhonchi, stridor Cardiovascular Exam: Present: regular rate, normal rhythm, normal heart sounds. Absent: systolic murmur, diastolic murmur, rubs, gallop, clicks GI/Abdominal exam: Present: soft, normal bowel sounds. Absent: distended, tenderness, guarding, rebound, rigid Extremities exam: Present: normal inspection, full ROM, normal capillary refill. Absent: tenderness, pedal edema, joint swelling, calf tenderness Back exam: Present: normal inspection Neurological exam: Present: alert, oriented X3, CN II-XII intact Psychiatric exam: Present: normal affect, normal mood Skin exam: Present: warm, dry, intact, normal color. Absent: rash Course Vital Signs 03/30/25 04:04 Temperature 97.9 F Pulse Rate 99 Respiratory 18 Rate Blood Pressure 140/87 O2 Sat by Pulse 98 Oximetry - Reevaluation(s) Reevaluation #1: 03/30/25 06:07 Medical records reviewed Reevaluation #2: 03/30/25 06:07 Patient symptoms remain resolved and improved Reevaluation #3: 03/30/25 06:07 Patient informed of results questions answered Reevaluation #4: Was pt. sent in by a medical professional or institution (, [facility], [employer], urgent care, hospital, or [facility]...) When possible be specific @ -no Did you speak to anyone other than the patient for history (EMS, parent, family, police, friend...)? What history was obtained from this source @ -no Did you review nursing and triage notes (agree or disagree)? Why? @ -agree Are old charts reviewed (outside hosp., previous admission, EMS record, old EKG, old radiological studies, urgent care reports/EKG's, [facility] records)? Report findings @ -yes Differential Diagnosis (chest pain, altered mental status, abdominal pain women, abdominal pain men, vaginal bleeding, weakness, fever, dyspnea, syncope, headache, dizziness, GI bleed, back pain, seizure, CVA, palpatations, mental health, musculoskeletal)? @ -prior EKG interpreted by me (3pts min.). @ -yes X-rays interpreted by me (1pt min.). @ -yes negative for acute disease CT interpreted by me (1pt min.). @ -no U/S interpreted by me (1pt. min.). @ -no What testing was considered but not performed or refused? (CT, X-rays, U/S, labs)? Why? @ -none What meds were considered but not given or refused? Why? @ -none Did you discuss the management of the patient with other professionals (professionals i.e. , PA, [employer], lab, RT, psych nurse, sr. social media & mobile manager, potato chip sacking machine operator, te acher, administrative officer, case management assistant)? Give summary @ -no Was smoking cessation discussed for >3mins.? @ -no Was critical care preformed (if so, how long)? @ -no Were there social determinants of health that impacted care today? How? (Homelessness, low income, unemployed, alcoholism, drug addiction, transportation, low edu. Level, literacy, decrease access to med. care, retirement, rehab)? @ -none Was there de-escalation of care discussed even if they declined (Discuss DNR or withdrawal of care, Hospice)? DNR status @ -no What co-morbidities impacted this encounter? (DM, HTN, Smoking, COPD, CAD, Cancer, CVA, ARF, Chemo, Hep., AIDS, mental health diagnosis, sleep apnea, morbid obesity)? @ -none Was patient admitted / discharged? Hospital course, mention meds given and route, prescriptions, significant lab abnormalities, going to OR and other pertinent info. @ - Undiagnosed new problem with uncertain prognosis? @ -no Drug Therapy requiring intensive monitoring for toxicity (Heparin, Nitro, Insulin, Cardizem)? @ -no Were any procedures done? @ -no Diagnosis/symptom? @ - Acute, or Chronic, or Acute on Chronic? @ -Acute Uncomplicated (without systemic symptoms) or Complicated (systemic symptoms)? @ -Complicated Side effects of treatment? @ -no Exacerbation, Progression, or Severe Exacerbation? @ -exacerbation Poses a threat to life or bodily function? How? (Chest pain, USA, [place], pneumonia, PE, COPD, DKA, ARF, appy, cholecystitis, CVA, Diverticulitis, Homicidal, Suicidal, threat to staff... and all critical care pts) @ -yes Reevaluation #5: Differential Palpitations Ventricular arrhythmias, atrial arrhythmias, myocardial infarction, anemia, t hyrotoxicosis, electrolyte imbalance, hypokalemia, pulmonary embolism, pulmonary disease, drugs, alcohol, anxiety, stress.... This is not meant to be an all-inclusive list. Medical Decision Making - Medical Decision Making 44 male to the ER for evaluation of palpitations. Tachycardia symptoms resolved nausea vomiting symptoms resolved patient feels well can be discharged home - Lab Data Result diagrams: 03/30/25 04:23 03/30/25 04:23 Lab Results 03/30/25 03/30/25 03/30/25 Range/Units 04:23 04:23 04:23 WBC 6.79 (4.50-10.00) 10*3/uL RBC 4.30 L (4.40-5.60) 10*6/uL Hgb 13.1 (13.0-17.0) g/dL Hct 37.1 L (39.6-50.0) % MCV 86.3 (80.0-97.0) fL MCH 30.5 (27.0-32.0) pg MCHC 35.3 (32.0-37.0) g/dL Plt Count 251 (140-440) 10*3/uL MPV 9.9 (9.5-12.2) fL Immature Gran % (Auto) 0.1 % Neutrophils % 54.7 % Lymphocytes % 34.2 % Monocytes % 5.9 % Eosinophils % 4.4 % Basophils % 0.7 % Immature Gran # 0.01 (0.00-0.04) 10*3/uL Neutrophils # 3.71 (1.80-7.70) 10*3/uL Lymphocytes # 2.32 (0.90-5.00) 10*3/uL Monocytes # 0.40 (0.20-1.00) 10*3/uL Eosinophils # 0.30 (0.04-0.35) 10*3/uL Basophils # 0.05 (0.00-0.10) 10*3/uL PT 11.3 (10.0-12.5) sec INR 1.0 (<1.2) APTT 23.9 (22.0-30.0) sec Sodium 140 (137-145) mmol/L Potassium 3.7 (3.5-5.1) mmol/L Chloride 108 H (98-107) mmol/L Carbon Dioxide 21 L (22-30) mmol/L Anion Gap 11 mmol/L BUN 13 (9-20) mg/dL Creatinine 0.98 (0.66-1.25) mg/dL Est GFR (CKD-EPI)AfAm >90 (>60 ml/min/1.73 sqM) Est GFR (CKD-EPI)NonAf >90 (>60 ml/min/1.73 sqM) Glucose 113 H (74-99) mg/dL Calcium 9.6 (8.4-10.2) mg/dL Phosphorus 4.4 (2.5-4.5) mg/dL Magnesium 1.8 (1.6-2.3) mg/dL Total Bilirubin 0.8 (0.2-1.3) mg/dL AST 37 (17-59) U/L ALT 30 (4-49) U/L Alkaline Phosphatase 70 (38-126) U/L Troponin I (0.000-0.034) ng/mL Total Protein 6.8 (6.3-8.2) g/dL Albumin 4.2 (3.5-5.0) g/dL Lipase 62 (23-300) U/L 03/30/25 Range/Units 04:23 WBC (4.50-10.00) 10*3/uL RBC (4.40-5.60) 10*6/uL Hgb (13.0-17.0) g/dL Hct (39.6-50.0) % MCV (80.0-97.0) fL MCH (27.0-32.0) pg MCHC (32.0-37.0) g/dL Plt Count (140-440) 10*3/uL MPV (9.5-12.2) fL Immature Gran % (Auto) % Neutrophils % % Lymphocytes % % Monocytes % % Eosinophils % % Basophils % % Immature Gran # (0.00-0.04) 10*3/uL Neutrophils # (1.80-7.70) 10*3/uL Lymphocytes # (0.90-5.00) 10*3/uL Monocytes # (0.20-1.00) 10*3/uL Eosinophils # (0.04-0.35) 10*3/uL Basophils # (0.00-0.10) 10*3/uL PT (10.0-12.5) sec INR (<1.2) APTT (22.0-30.0) sec Sodium (137-145) mmol/L Potassium (3.5-5.1) mmol/L Chloride (98-107) mmol/L Carbon Dioxide (22-30) mmol/L Anion Gap mmol/L BUN (9-20) mg/dL Creatinine (0.66-1.25) mg/dL Est GFR (CKD-EPI)AfAm (>60 ml/min/1.73 sqM) Est GFR (CKD-EPI)NonAf (>60 ml/min/1.73 sqM) Glucose (74-99) mg/dL Calcium (8.4-10.2) mg/dL Phosphorus (2.5-4.5) mg/dL Magnesium (1.6-2.3) mg/dL Total Bilirubin (0.2-1.3) mg/dL AST (17-59) U/L ALT (4-49) U/L Alkaline Phosphatase (38-126) U/L Troponin I <0.012 (0.000-0.034) ng/mL Total Protein (6.3-8.2) g/dL Albumin (3.5-5.0) g/dL Lipase (23-300) U/L - EKG Data -: EKG Interpreted by Me (EKG sinus 87 CO 156 QRS 93 QTc 402) - Radiology Data Radiology results: report reviewed (Chest x-ray is negative for acute disease), image reviewed Disposition Clinical Impression: Palpitations Disposition: HOME SELF-CARE Instructions (If sedation given, give patient instructions): Heart Palpitations (ED) Is patient prescribed a controlled substance at d/c from ED?: No Referrals: Danna Garcia DO [Primary Care Provider] - 1-2 days Time of Disposition: 06:00
[2025-03-30] MEDS: ONDANSETRON 4 MG/2 ML VIAL IVP STA (04:28)
[2025-03-30] MEDS: SODIUM CHLORIDE 0.9% 1,000 ML IV SCH (04:31)
[2025-03-30 04:38] LABS: Basophils # (A) 0.05 10*3/uL (0.00-0.10); Basophils % (A) 0.7 %; Eosinophils # (A) 0.30 10*3/uL (0.04-0.35); Eosinophils % (A) 4.4 %; HCT 37.1 % (39.6-50.0); HGB 13.1 g/dL (13.0-17.0); Lymphocytes # (A) 2.32 10*3/uL (0.90-5.00); Lymphocytes % (A) 34.2 %; MCH 30.5 pg (27.0-32.0); MCHC 35.3 g/dL (32.0-37.0); MCV 86.3 fL (80.0-97.0); Monocytes # (A) 0.40 10*3/uL (0.20-1.00); Monocytes % (A) 5.9 %; Neutrophils # (A) 3.71 10*3/uL (1.80-7.70); Neutrophils % (A) 54.7 %; Platelet Count 251 10*3/uL (140-440); RBC 4.30 10*6/uL (4.40-5.60); RDW 12.3 % (11.5-14.5); WBC 6.79 10*3/uL (4.50-10.00)
--- NOTE | 2025-03-30 05:01 | XR ---
EXAM: XR Chest, 2 Views CLINICAL HISTORY: Weakness TECHNIQUE: Frontal and lateral views of the chest. COMPARISON: Chest two views dated 06/04/2024 FINDINGS: Lungs: No focal consolidation. The pulmonary vasculature demonstrates no significant radiographic abnormality. Pleural space: Unremarkable. No pneumothorax. No large pleural effusion. Heart: Unremarkable. No cardiomegaly. Mediastinum: Unremarkable. No significant abnormality identified. The trachea is midline. Bones/joints: Unremarkable. No acute fracture. IMPRESSION: No focal consolidation or acute cardiopulmonary process identified.
[2025-03-30 05:17] LABS: ALT 30 U/L (4-49); AST 37 U/L (17-59); African American GFR (CKD) >90 (>60 ml/min/1.73 sqM); Albumin 4.2 g/dL (3.5-5.0); Alkaline Phosphatase 70 U/L (38-126); Anion Gap 11 mmol/L; Blood Urea Nitrogen 13 mg/dL (9-20); Calcium 9.6 mg/dL (8.4-10.2); Carbon Dioxide 21 mmol/L (22-30); Chloride 108 mmol/L (98-107); Glucose 113 mg/dL (74-99); Lipase 62 U/L (23-300); Magnesium 1.8 mg/dL (1.6-2.3); Non-African American GFR(CKD) >90 (>60 ml/min/1.73 sqM); Potassium 3.7 mmol/L (3.5-5.1); Sodium 140 mmol/L (137-145); Total Protein 6.8 g/dL (6.3-8.2)
[2025-03-30] MEDS: MORPHINE SULFATE 4 MG/ML SYRINGE IV STA (05:21)
[2025-03-30 05:23] LABS: INR 1.0 (<1.2); Partial Thromboplastin Time 23.9 sec (22.0-30.0); Prothrombin Time 11.3 sec (10.0-12.5)
[2025-03-30 06:08] VITALS: BP 110/70; PULSE 78; TEMP 98.4
== END 2025-03-30 06:08 | disposition home or self-care (01) ==
LOC: EC 04:01
DX: R00.2 Palpitations (principal); Z87.891 Personal history of nicotine dependence; Z88.8 Allergy status to other drugs, medicaments and biological substances
CPT/HCPCS: 36415; 93005; 80053; 83690; 83735; 84100; 84484; 85025; 71046; 85610; 85730; 99285; 96374; 96361 ×2; J2405